=== PATIENT | male | born 1955 | race Caucasian/White ===

== ENCOUNTER → 2016-12-21 | Outpatient (CLI) | payer MEDICARE ==
--- NOTE | 2016-12-21 16:36 | REP ---
Duplex carotid sonography: History: Occlusion or stenosis of the carotid arteries. No comparison sonography. Findings: Antegrade flow is observed in both vertebral arteries. Right carotid: The right common carotid artery is unremarkable on two-dimensional scanning. There is mild mixed plaquing in the bulb, proximal ICA and proximal ECA on two-dimensional scanning on the right side. Color flow and spectral Doppler interrogation are unremarkable however. Velocity chart right carotid: CCA PSV 115 cm/s ICA PSV 68 cm/s ICA EDV 23 cm/s ECA PSV 130 cm/s Right ICA/CCA ratio normal 0.6. Impression: 0% to 15% category narrowing in the right ICA by Doppler velocity criteria. Left carotid: The left common carotid artery is unremarkable on two-dimensional scanning. There is mild mixed plaquing in the bulb and proximal ICA on two-dimensional scanning on the left side. Color flow and spectral Doppler interrogation are unremarkable on the left. Velocity chart left carotid: CCA PSV 106 cm/s ICA PSV 64 cm/s ICA EDV 26 cm/s ECA PSV 77 cm/s Left ICA/CCA ratio normal 0.6. Impression: 0% to 15% category narrowing in the left ICA by Doppler velocity criteria. Signed by Hu Stafford MD 12/21/2016 04:58 P
== END ==
LOC: M RAD 15:31
PROVIDERS: ATTEND Nurse Practitioner Family
DX: I65.23 Occlusion and stenosis of bilateral carotid arteries (principal); K21.9 Gastro-esophageal reflux disease without esophagitis; E03.9 Hypothyroidism, unspecified; E78.5 Hyperlipidemia, unspecified; I10 Essential (primary) hypertension; Z12.5 Encounter for screening for malignant neoplasm of prostate

== ENCOUNTER → 2016-12-21 | Outpatient (CLI) | payer MEDICARE ==
[2016-12-21 12:31] LABS: BASO % 0.7 % (0.0-1.0); EOS # 0.3 K/mm3 (0.0-0.50); EOS % 3.8 % (0.0-3.0); LARGE UNSTAINED CELL # 0.2 K/mm3 (0.0-0.4); LARGE UNSTAINED CELL % 2.2 % (0.0-4.0); LYMPH # 2.7 K/mm3 (1.5-4.5); LYMPH % 33.4 % (24.0-44.0); MEAN CORPUSCULAR HEMOGLOBIN 31.7 pg (27.0-33.0); MEAN CORPUSCULAR HGB CONC 34.1 g/dl (32.0-36.5); MEAN CORPUSCULAR VOLUME 93.1 fl (80.0-96.0); MONO # 0.6 K/mm3 (0.0-0.8); MONO % 7.5 % (0.0-5.0); NEUTROPHILS # 3.9 K/mm3 (1.8-7.7); NEUTROPHILS % 52.5 % (36.0-66.0); PLATELET COUNT, AUTOMATED 303 k/mm3 (150-450); WHITE BLOOD COUNT 7.5 K/mm3 (4.0-10.0)
[2016-12-21 12:37] LABS: ALBUMIN 3.9 GM/DL (3.2-5.2); ALBUMIN/GLOBULIN RATIO 1.26 (1.00-1.93); ALKALINE PHOSPHATASE 62 U/L (45-117); ALT/SGPT 60 U/L (12-78); ANION GAP 9 MEQ/L (8-16); AST/SGOT 24 U/L (15-37); BILIRUBIN,TOTAL 0.2 MG/DL (0.2-1.0); BLOOD UREA NITROGEN 18 MG/DL (7-18); CALCIUM LEVEL 9.1 MG/DL (8.5-10.1); CARBON DIOXIDE LEVEL 25 MEQ/L (21-32); CHLORIDE LEVEL 107 MEQ/L (98-107); CHOLESTEROL LEVEL 208 MG/DL (<200); CREATININE FOR GFR 0.81 MG/DL (0.70-1.30); FREE T4 1.08 NG/DL (0.76-1.46); GLOMERULAR FILTRATION RATE > 60.0 (>56); GLUCOSE, FASTING 139 MG/DL (70-105); POTASSIUM SERUM 5.1 MEQ/L (3.5-5.1); SODIUM LEVEL 141 MEQ/L (136-145); TRIGLYCERIDES LEVEL 409 MG/DL (<150)
[2016-12-22 14:13] LABS: PSA TOTAL 0.7 ng/mL (0.0-4.0)
== END ==
LOC: M WUC 08:31
PROVIDERS: ATTEND Nurse Practitioner Family
DX: K21.9 Gastro-esophageal reflux disease without esophagitis (principal); E03.9 Hypothyroidism, unspecified; E78.5 Hyperlipidemia, unspecified; I10 Essential (primary) hypertension; Z12.5 Encounter for screening for malignant neoplasm of prostate

== ENCOUNTER 2016-12-31 17:40 | Emergency (ER) | payer MEDICARE ==
--- NOTE | 2016-12-31 18:12 | REP ---
Clinical: Chest pain . Comparison: 05/30/2016 . Findings: The mediastinum and cardiac silhouette are stable and within normal limits for portable technique. The lung flanagan are clear without acute consolidation, effusion, or pneumothorax. Skeletal structures are intact. Impression: Normal portable chest x-ray Signed by Hudson Lee MD 12/31/2016 06:03 P
[2016-12-31] MEDS ORDERED: NITROGLYCERIN 0.4 MG SUBL TABLET As Ordered ONE (18:26)
[2016-12-31] MEDS ORDERED: ASPIRIN 81 MG CHEW TABLET As Ordered ONE (18:26)
[2016-12-31 18:31] LABS: BASO # 0.1 K/mm3 (0.0-0.2); BASO % 0.5 % (0.0-1.0); EOS # 0.4 K/mm3 (0.0-0.50); EOS % 3.8 % (0.0-3.0); LARGE UNSTAINED CELL # 0.2 K/mm3 (0.0-0.4); LYMPH # 3.7 K/mm3 (1.5-4.5); MEAN CORPUSCULAR HEMOGLOBIN 32.2 pg (27.0-33.0); MEAN CORPUSCULAR VOLUME 91.8 fl (80.0-96.0); MONO # 0.5 K/mm3 (0.0-0.8); MONO % 5.2 % (0.0-5.0); NEUTROPHILS # 5.6 K/mm3 (1.8-7.7); NEUTROPHILS % 54.4 % (36.0-66.0); PLATELET COUNT, AUTOMATED 319 k/mm3 (150-450); RED CELL DISTRIBUTION WIDTH 12.9 % (11.5-14.5); WHITE BLOOD COUNT 10.2 K/mm3 (4.0-10.0)
[2016-12-31 18:44] LABS: ANION GAP 10 MEQ/L (8-16); BLOOD UREA NITROGEN 17 MG/DL (7-18); CALCIUM LEVEL 9.1 MG/DL (8.5-10.1); CARBON DIOXIDE LEVEL 25 MEQ/L (21-32); CHLORIDE LEVEL 103 MEQ/L (98-107); CREATININE FOR GFR 0.91 MG/DL (0.70-1.30); GLOMERULAR FILTRATION RATE > 60.0 (>56); GLUCOSE, FASTING 173 MG/DL (70-105); POTASSIUM SERUM 3.9 MEQ/L (3.5-5.1); SODIUM LEVEL 138 MEQ/L (136-145)
--- NOTE | 2016-12-31 20:29 | ECGEPIP ---
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
--- NOTE | 2017-01-01 01:25 | EDDOCDS ---
Physician Documentation [facility] Name: Zafar Dooley Age: 61 yrs Sex: Male : 1955 Arrival Date: 12/31/2016 Time: 17:40 Bed 17 Private MD: Disposition: 01/01/17 01:18 Discharged to Home/Self Care. Impression: Chest pain, unspecified. - Condition is Stable. - Discharge Instructions: Nonspecific Chest Pain, Chest Wall Pain, Nonspecific Chest Pain, [id number]. - Medication Reconciliation, Local Pharmacy Hours form. - Follow up: Jonn Oneal PA; When: Call to arrange an appointment; Reason: Continuance of care. - Problem is an acute exacerbation. - Symptoms have improved. Historical: - Allergies: Bees; fire ants; - Home Meds: 1. zolpidem 5 mg Oral tab 1 tab nightly (Last dose: Unknown) 2. tizanidine 4 mg oral tab 1 tab every 8 hours as needed (Last dose: Unknown) 3. promethazine 25 mg Oral tab 1 tab every 6 hours (Last dose: Unknown) 4. omeprazole 40 mg Oral cpDR 1 cap once daily (Last dose: Unknown) 5. lisinopril 20 mg Oral tab 1 tab once daily (Last dose: Unknown) 6. amlodipine 10 mg Oral tab 1 tab once daily (Last dose: Unknown) 7. aspirin 81 mg Oral TbEC 1 tab once daily (Last dose: Unknown) 8. citalopram 40 mg Oral tab 1 tab once daily (Last dose: Unknown) 9. gabapentin 400 mg Oral cap 1 cap 3 times per day (Last dose: Unknown) 10. glimepiride 4 mg Oral tab 1 tab once daily (Last dose: Unknown) 11. levothyroxine 112 mcg Oral tab 1 tab once daily (Last dose: Unknown) 12. meclizine 25 mg Oral tab 1 tab 3 times per day as needed (Last dose: Unknown) 13. metformin 1,000 mg Oral tab 1 tab 2 times per day (Last dose: Unknown) 14. nitroglycerin 0.4 mg SL subl 1 tab every 5 minutes (Last dose: Unknown) 15. pravastatin 40 mg oral tab 1 tab once daily (Last dose: Unknown) - PMHx: TIA; neuropathy; Diabetes - NIDDM: controlled; COPD; Aneurysm, Cerebral; - PSHx: right shoulder; Appendectomy; - Social history: Smoking status: Patient uses tobacco products, heavy tobacco smoker. No barriers to communication noted, Speaks appropriately for age. - Family history: Not pertinent. - : The pt / caregiver states he / she is not on anticoagulants. Home medication list is obtained from the patient. - Exposure Risk Screening:: None identified. Vital Signs: 12/31 17:42 BP 185 / 91 RA Sitting (auto/reg); Pulse 78; Resp 18; Temp 96.8; Pulse Ox 95% on R/A; jrd Weight 89.36 kg / 197.01 lbs (R); Height 5 ft. 7 in. (170.18 cm); Pain 8/10; 17:49 BP 139 / 85 (auto/); rs3 17:49 Pulse 76 MON; Pulse Ox 96% ; rs3 18:03 BP 107 / 75 (auto/); kas2 18:03 Pulse 82 MON; Pulse Ox 95% ; kas2 18:18 BP 136 / 79 (auto/); kas2 18:18 Pulse 78 MON; Pulse Ox 94% ; kas2 18:33 BP 127 / 66 (auto/); kas2 18:33 Pulse 96 MON; Pulse Ox 91% ; kas2 18:48 BP 138 / 70 (auto/); kas2 18:48 Pulse 88 MON; Pulse Ox 93% ; kas2 19:03 BP 126 / 64 (auto/); kas2 19:03 Pulse 84 MON; Pulse Ox 95% ; kas2 19:18 BP 130 / 69 (auto/); kas2 19:18 Pulse 84 MON; Pulse Ox 95% ; kas2 19:33 BP 133 / 79 (auto/); kas2 19:33 Pulse 86 MON; Pulse Ox 96% ; kas2 19:48 BP 129 / 73 (auto/); kas2 19:48 Pulse 90 MON; Pulse Ox 94% ; kas2 20:03 BP 136 / 76 (auto/); kas2 20:03 Pulse 88 MON; Pulse Ox 94% ; kas2 20:18 BP 105 / 57 (auto/); kas2 20:18 Pulse 76 MON; Pulse Ox 93% ; kas2 20:33 BP 104 / 55 (auto/); kas2 20:33 Pulse 80 MON; Pulse Ox 93% ; kas2 20:48 BP 106 / 57 (auto/); kas2 20:48 Pulse 76 MON; Pulse Ox 94% ; kas2 21:03 BP 108 / 56 (auto/); kas2 21:03 Pulse 80 MON; Pulse Ox 92% ; kas2 21:07 Resp 18; Temp 97.9(O); Pain 0/10; kas2 21:18 BP 113 / 62 (auto/); kas2 21:18 Pulse 78 MON; Pulse Ox 92% ; kas2 21:33 BP 100 / 52 (auto/); kas2 21:33 Pulse 82 MON; Pulse Ox 92% ; kas2 21:48 BP 100 / 52 (auto/); kas2 21:48 Pulse 78 MON; Pulse Ox 93% ; kas2 22:03 BP 122 / 70 (auto/); nn1 22:03 Pulse 88 MON; Pulse Ox 93% ; nn1 22:18 BP 125 / 73 (auto/); nn1 22:18 Pulse 84 MON; Pulse Ox 92% ; nn1 22:33 BP 125 / 75 (auto/); nn1 22:33 Pulse 84 MON; Pulse Ox 92% ; nn1 22:48 BP 118 / 71 (auto/); nn1 22:48 Pulse 88 MON; Pulse Ox 93% ; nn1 23:18 BP 133 / 68 (auto/); nn1 23:18 Pulse 88 MON; Pulse Ox 94% ; nn1 23:33 BP 131 / 68 (auto/); nn1 23:33 Pulse 88 MON; Pulse Ox 94% ; nn1 01/01 01:20 Temp 97.6(O); nn1 01:22 BP 126 / 53; Pulse 82; Resp 18; Pulse Ox 95% on R/A; Pain 0/10; kas2 12/31 17:42 Body Mass Index 30.85 (89.36 kg, 170.18 cm) jrd MDM: 12/31 17:49 Cane Cutter/Pulse Ox/q 30 min VS ordered. ml6 17:49 If >35 years old with cardiac risk factors and/or suspicion of acute ischemia- place ml6 directly in room and do STAT EKG ordered. 17:49 If pre-RCE wait time >60 minutes, inform reg. staff to do full reg ordered. ml6 17:49 Oxygen at 2L/min via NC ordered. ml6 17:49 IV Saline Lock ordered. ml6 17:49 Undress patient appropriately for examination ordered. ml6 17:49 BMP Ordered. EDMS 17:49 CBC with Diff Ordered. EDMS 17:49 CIP Ordered. EDMS 17:49 D-Dimer Quant Ordered. EDMS 17:49 Troponin Ordered. EDMS 17:50 Chest, 1 View Ordered. EDMS 17:50 ECG WITH READING ER PHYS+CARDIAG ordered. EDMS 18:18 Aspirin 324 mg PO once ordered. br1 18:18 Nitrostat 0.4 mg Sublingual once ordered. br1 18:42 CBC with Diff Reviewed. br1 18:42 Chest, 1 View Reviewed. br1 18:57 Financial registration complete. gjb 19:04 [facility] Payment Agreement was scanned into [employer] and attached to record. gjb 19:41 BMP Reviewed. br1 19:41 CIP Reviewed. br1 19:41 D-Dimer Quant Reviewed. br1 19:41 Troponin Reviewed. br1 19:55 Admit to ED Observation status ordered. br1 19:55 Repeat EKG (put time details section) ordered. br1 19:55 Redraw CIP &Troponin (put time in details section) ordered. br1 19:57 Misc. Nursing Order ordered. br1 20:34 Redraw CIP &Troponin (put time in details section) complete. tmm1 20:35 Repeat EKG (put time details section) complete. tmm1 20:36 ECG WITH READING ER PHYS ordered. EDMS 20:36 CARDIAC MARKER PANEL Ordered. EDMS 20:38 Admit to ED Observation status complete. tmm1 01/01 01:15 CARDIAC MARKER PANEL Reviewed. mm11 01:15 EKG-ADULT Reviewed. mm11 Administered Medications: 12/31 18:31 Drug: Aspirin 324 mg [aspirin 81 mg chewable tablet (4 tabs)] Route: PO; rs3 18:31 Drug: Nitrostat 0.4 mg [Nitrostat 0.4 mg sublingual tablet (1 tabs)] Route: Sublingual; rs3 18:52 Follow up: Response: Pain is decreased rs3 Signatures: Dispatcher [employer] EDMS Ezra Ponce DO DO mm11 Loi Mckeon MD MD br1 Ezra Villa, SARAH RN ml6 McLear, Chani, ETCHER ENAMELING ETCHER ENAMELING tmm1 Lissa Bautista Kim, RN RN [facility]2 Eden Bell RN rs3 The chart was reviewed and I authenticate all verbal orders and agree with the evaluation and treatment provided.Attachments: 19:04 [facility] Payment Agreement ayanna [email or web address]
--- NOTE | 2017-01-01 01:26 | EDDOCDS ---
Nurse's Notes [facility] [place] [facility] Name: Zafar Dooley Age: 61 yrs Sex: Male : 1955 Arrival Date: 12/31/2016 Time: 17:40 Bed 17 Private MD: Diagnosis: Chest pain, unspecified Presentation: 12/31 17:42 Presenting complaint: Patient states: states substernal chest pain radiating to his ml6 back since 0730 this am, patient states pain and pressure 8/10. Aspirin was not taken prior to arrival. Adult Sepsis Screening: The patient does not have new or worsening altered mentation. Patient's respiratory rate is less than 22. Systolic blood pressure is greater than 100. Patient has a qSOFA score of 0- Negative Sepsis Screen. Suicide/Homicide risk assessment- the patient denies having any suicidal and/or homicidal ideations and does not present with any other emotional, behavioral or mental health complaints. Status: Patient is not a substance abuse services director or dependent. Transition of care: patient was not received from another setting of care. 17:42 Acuity: KORTNEY Level 2 ml6 17:42 Method Of Arrival: Walkin/Carried/Asstd ml6 Triage Assessment: 18:04 General: Appears in no apparent distress, Behavior is appropriate for age, cooperative. ml6 Pain: Location: chest Pain currently is 8 out of 10 on a pain scale. Pain does not radiate. Quality of pain is described as sharp, Pain began 1 day ago Is continuous Alleviated by nothing. Aggravated by. HIV screening NA for this visit. Cardiovascular: Capillary refill < 3 seconds is brisk in bilateral fingers toes Heart tones S1 S2 present Edema is absent. Pulses are all present. Rhythm is regular Chest pain is described as "worst pain of my life", quality is pressure, stabbing, radiates to left arm(s) back episodes are continuous began 0730. Respiratory: No deficits noted. GI: No deficits noted. Abdomen is flat, non- distended Bowel sounds present X 4 quads. Historical: - Allergies: Bees; fire ants; - Home Meds: 1. zolpidem 5 mg Oral tab 1 tab nightly (Last dose: Unknown) 2. tizanidine 4 mg oral tab 1 tab every 8 hours as needed (Last dose: Unknown) 3. promethazine 25 mg Oral tab 1 tab every 6 hours (Last dose: Unknown) 4. omeprazole 40 mg Oral cpDR 1 cap once daily (Last dose: Unknown) 5. lisinopril 20 mg Oral tab 1 tab once daily (Last dose: Unknown) 6. amlodipine 10 mg Oral tab 1 tab once daily (Last dose: Unknown) 7. aspirin 81 mg Oral TbEC 1 tab once daily (Last dose: Unknown) 8. citalopram 40 mg Oral tab 1 tab once daily (Last dose: Unknown) 9. gabapentin 400 mg Oral cap 1 cap 3 times per day (Last dose: Unknown) 10. glimepiride 4 mg Oral tab 1 tab once daily (Last dose: Unknown) 11. levothyroxine 112 mcg Oral tab 1 tab once daily (Last dose: Unknown) 12. meclizine 25 mg Oral tab 1 tab 3 times per day as needed (Last dose: Unknown) 13. metformin 1,000 mg Oral tab 1 tab 2 times per day (Last dose: Unknown) 14. nitroglycerin 0.4 mg SL subl 1 tab every 5 minutes (Last dose: Unknown) 15. pravastatin 40 mg oral tab 1 tab once daily (Last dose: Unknown) - PMHx: TIA; neuropathy; Diabetes - NIDDM: controlled; COPD; Aneurysm, Cerebral; - PSHx: right shoulder; Appendectomy; - Social history: Smoking status: Patient uses tobacco products, heavy tobacco smoker. No barriers to communication noted, Speaks appropriately for age. - Family history: Not pertinent. - : The pt / caregiver states he / she is not on anticoagulants. Home medication list is obtained from the patient. - Exposure Risk Screening:: None identified. Screenin:34 Screening information is obtained from the patient. Fall risk: No risks identified. rs3 Assistance ADL's: requires no assistance with activities of daily living. Abuse/DV Screen: The patient / caregiver reports he/she is: not in a situation that causes fear, pain or injury. Nutritional screening: No deficits noted. home support is adequate. 01/01 01:24 Advance Directives: Currently, there is no health care proxy. There is no active DNR kas2 order. There is no living will. There is no Power of [employer] Administrator. Assessment: 12/31 18:32 General: Appears in no apparent distress, Behavior is appropriate for age, cooperative. rs3 Pain: Location: chest. Cardiovascular: Capillary refill < 3 seconds Clubbing of nail beds is absent Heart tones S1 S2 present Chest pain is described as Pain is 7 out of 10 on a pain scale. quality is squeezing, is located in anterior chest wall radiates to left arm(s) back episodes are intermittent this morning. Cardiovascular: Rhythm is regular Chest pain. Respiratory: Airway is patent Respiratory effort is even, unlabored, Breath sounds are clear bilaterally. Derm: Skin is pink, warm & dry. 20:07 General: Appears in no apparent distress, comfortable, Behavior is appropriate for age, nn1 cooperative. General: Dr. Mckeon approved of patient taking own home medications. Patient aware. Patient aware of plan of care at this time. . Pain: Denies pain. Cardiovascular: Capillary refill < 3 seconds. Respiratory: Airway is patent Respiratory effort is even, unlabored, Respiratory pattern is regular. Derm: Skin is pink, warm & dry. 20:52 Reassessment: Patient appears in no apparent distress at this time. Patient denies pain nn1 at this time. General: Appears in no apparent distress, comfortable, Behavior is appropriate for age, cooperative. 21:05 General: Verbal report given by Laurence Morelos RN. Assumed care of patient at this time.. kas2 22:03 General: Appears in no apparent distress, comfortable, Behavior is appropriate for age, kas2 cooperative. Pain: Denies pain. Neurological: Level of Consciousness is awake, alert, Oriented to person, place, time. Cardiovascular: Capillary refill < 3 seconds Heart tones S1 S2 present Rhythm is regular Chest pain is denied. Respiratory: Airway is patent Respiratory effort is even, unlabored, Respiratory pattern is regular, symmetrical, Breath sounds are clear bilaterally. Derm: Skin is intact, Skin is dry, Skin is pink, warm & dry. Skin temperature is warm. 22:50 General: Appears in no apparent distress, comfortable, Behavior is appropriate for age, nn1 cooperative. Pain: Denies pain. Neurological: Level of Consciousness is awake, alert, Oriented to person, place, time. Cardiovascular: Rhythm is sinus rhythm No ectopy. Respiratory: Airway is patent Respiratory effort is even, unlabored, Respiratory pattern is regular, symmetrical. Derm: Skin is intact, Skin is dry, Skin is pink, warm & dry. Skin temperature is warm. 01/01 00:01 General: Appears in no apparent distress, comfortable, Behavior is appropriate for age, nn1 cooperative. Pain: Denies pain. Neurological: Level of Consciousness is awake, alert, Oriented to person, place, time. Cardiovascular: Rhythm is sinus rhythm No ectopy. Respiratory: Airway is patent Respiratory effort is even, unlabored, Respiratory pattern is regular, symmetrical. Derm: Skin is intact, Skin is dry, Skin is pink, warm & dry. Skin temperature is warm. 01:22 General: Appears in no apparent distress, comfortable, Behavior is appropriate for age, kas2 cooperative. Pain: Denies pain. Neurological: Level of Consciousness is awake, alert, Oriented to person, place, time. Cardiovascular: Rhythm is sinus rhythm No ectopy. Respiratory: Airway is patent Respiratory effort is even, unlabored, Respiratory pattern is regular, symmetrical. Derm: Skin is intact, Skin is dry, Skin is pink, warm & dry. Skin temperature is warm. Vital Signs: 12/31 17:42 BP 185 / 91 RA Sitting (auto/reg); Pulse 78; Resp 18; Temp 96.8; Pulse Ox 95% on R/A; jrd Weight 89.36 kg (R); Height 5 ft. 7 in. (170.18 cm); Pain 8/10; 17:49 BP 139 / 85 (auto/); rs3 17:49 Pulse 76 MON; Pulse Ox 96% ; rs3 18:03 BP 107 / 75 (auto/); kas2 18:03 Pulse 82 MON; Pulse Ox 95% ; kas2 18:18 BP 136 / 79 (auto/); kas2 18:18 Pulse 78 MON; Pulse Ox 94% ; kas2 18:33 BP 127 / 66 (auto/); kas2 18:33 Pulse 96 MON; Pulse Ox 91% ; kas2 18:48 BP 138 / 70 (auto/); kas2 18:48 Pulse 88 MON; Pulse Ox 93% ; kas2 19:03 BP 126 / 64 (auto/); kas2 19:03 Pulse 84 MON; Pulse Ox 95% ; kas2 19:18 BP 130 / 69 (auto/); kas2 19:18 Pulse 84 MON; Pulse Ox 95% ; kas2 19:33 BP 133 / 79 (auto/); kas2 19:33 Pulse 86 MON; Pulse Ox 96% ; kas2 19:48 BP 129 / 73 (auto/); kas2 19:48 Pulse 90 MON; Pulse Ox 94% ; kas2 20:03 BP 136 / 76 (auto/); kas2 20:03 Pulse 88 MON; Pulse Ox 94% ; kas2 20:18 BP 105 / 57 (auto/); kas2 20:18 Pulse 76 MON; Pulse Ox 93% ; kas2 20:33 BP 104 / 55 (auto/); kas2 20:33 Pulse 80 MON; Pulse Ox 93% ; kas2 20:48 BP 106 / 57 (auto/); kas2 20:48 Pulse 76 MON; Pulse Ox 94% ; kas2 21:03 BP 108 / 56 (auto/); kas2 21:03 Pulse 80 MON; Pulse Ox 92% ; kas2 21:07 Resp 18; Temp 97.9(O); Pain 0/10; kas2 21:18 BP 113 / 62 (auto/); kas2 21:18 Pulse 78 MON; Pulse Ox 92% ; kas2 21:33 BP 100 / 52 (auto/); kas2 21:33 Pulse 82 MON; Pulse Ox 92% ; kas2 21:48 BP 100 / 52 (auto/); kas2 21:48 Pulse 78 MON; Pulse Ox 93% ; kas2 22:03 BP 122 / 70 (auto/); nn1 22:03 Pulse 88 MON; Pulse Ox 93% ; nn1 22:18 BP 125 / 73 (auto/); nn1 22:18 Pulse 84 MON; Pulse Ox 92% ; nn1 22:33 BP 125 / 75 (auto/); nn1 22:33 Pulse 84 MON; Pulse Ox 92% ; nn1 22:48 BP 118 / 71 (auto/); nn1 22:48 Pulse 88 MON; Pulse Ox 93% ; nn1 23:18 BP 133 / 68 (auto/); nn1 23:18 Pulse 88 MON; Pulse Ox 94% ; nn1 23:33 BP 131 / 68 (auto/); nn1 23:33 Pulse 88 MON; Pulse Ox 94% ; nn1 01/01 01:20 Temp 97.6(O); nn1 01:22 BP 126 / 53; Pulse 82; Resp 18; Pulse Ox 95% on R/A; Pain 0/10; kas2 12/31 17:42 Body Mass Index 30.85 (89.36 kg, 170.18 cm) jrd Vitals: 12/31 17:42 Log In Time: December 31, 2016 at 17:34. RN notified that patient meets Red Flag jrd criteria. ED Course: 17:42 Patient visited by Carl Sorensen PCA. jrd 17:42 Patient moved to Waiting jrd 17:43 Patient visited by Carl Sorensen PCA. jrd 17:49 Patient moved to 17 ml6 18:02 Triage Initiated ml6 18:03 Loi Mckeon MD is Attending Physician. br1 18:05 EKG done. (by ED staff). Reviewed by Stacey Eisenberg MD. jlf 18:12 Patient visited by Dong Rivera PCA. jlf 18:12 Pt greeted and oriented to ED. Patient advised of names of staff involved in care, jlf location of call walters, wait times and NPO status. Accompanied by Family Member, Patient has correct armband on for positive identification. Bed in low position. collections director on. Pulse ox on. NIBP on. 18:13 Patient visited by Dong Rivera PCA. jlf 18:17 Patient visited by Loi Mckeon MD. br1 18:34 Inserted saline lock: 20 gauge in right antecubital area and blood collected. The rs3 patient tolerated the procedure well. Labs drawn. (by ED staff). 18:34 Chest, 1 View Returned. EDMS 18:52 Patient visited by Eden Bell RN. rs3 19:04 [facility] Payment Agreement was scanned into [employer] and attached to record. gjb 19:45 Patient visited by Loi Mckeon MD. br1 20:21 Patient visited by González Medrano RN. nn1 20:52 Patient visited by González Medrano RN. nn1 21:07 Patient visited by Janny Knight RN. kas2 21:08 EKG-ADULT Returned. EDMS 22:04 Patient visited by Janny Knight RN. kas2 22:14 Janny Knight RN is Primary Nurse. kas2 22:38 Patient visited by Janny Knight RN. kas2 22:51 Patient visited by González Medrano RN. nn1 23:32 Patient visited by Janny Knight RN. kas2 23:54 CARDIAC MARKER PANEL Sent. nn1 23:58 Patient visited by González Medrano RN. nn1 01/01 00:02 Patient visited by Arjun Mayberry PCA. jmv 00:02 EKG done. (by ED staff). Reviewed by Loi Mckeon MD. jmv 00:03 Patient visited by González Medrano RN. nn1 00:22 Attending Physician role handed off by Loi Mckeon MD mm11 00:22 Ezra Ponce DO is Attending Physician. mm11 00:38 Patient visited by González Medrano RN. nn1 01:08 Patient visited by González Medrano RN. nn1 01:18 Jonn Oneal PA is Referral Physician. mm11 01:23 Discontinued IV bleeding controlled, pressure dressing applied, No redness/swelling at kas2 site. No procedures done that require assistance. 01:24 The patient / caregiver is instructed regarding the plan of care and ED course. [facility] Administered Medications: 12/31 18:31 Drug: Aspirin 324 mg [aspirin 81 mg chewable tablet (4 tabs)] Route: PO; rs3 18:31 Drug: Nitrostat 0.4 mg [Nitrostat 0.4 mg sublingual tablet (1 tabs)] Route: Sublingual; rs3 18:52 Follow up: Response: Pain is decreased rs3 Order Results: Lab Order: BMP; SPEC'M 12/31/16 18:11 Test: GLUCOSE, FASTING; Value: 173; Range: 70-105; Abnormal: Above high normal; Units: MG/DL; Status: F Test: BLOOD UREA NITROGEN; Value: 17; Range: 7-18; Units: MG/DL; Status: F Test: CREATININE FOR GFR; Value: 0.91; Range: 0.70-1.30; Units: MG/DL; Status: F Test: GLOMERULAR FILTRATION RATE; Value: > 60.0; Range: >56; Status: F Test: SODIUM LEVEL; Value: 138; Range: 136-145; Units: MEQ/L; Status: F Test: POTASSIUM SERUM; Value: 3.9; Range: 3.5-5.1; Units: MEQ/L; Status: F Test: CHLORIDE LEVEL; Value: 103; Range: 98-107; Units: MEQ/L; Status: F Test: CARBON DIOXIDE LEVEL; Value: 25; Range: 21-32; Units: MEQ/L; Status: F Test: ANION GAP; Value: 10; Range: 8-16; Units: MEQ/L; Status: F Test: CALCIUM LEVEL; Value: 9.1; Range: 8.5-10.1; Units: MG/DL; Status: F Test Note: ; Units are mL/min/1.73 m2 Chronic Kidney Disease Staging per NKF: Stage I & II GFR >=60 Normal to Mildly Decreased Stage III GFR 30-59 Moderately Decreased Stage IV GFR 15-29 Severely Decreased Stage V GFR <15 Very Little GFR Left ESRD GFR <15 on CONDEMNATION ENGINEER Lab Order: CBC with Diff; SPEC'M 12/31/16 18:11 Test: WHITE BLOOD COUNT; Value: 10.2; Range: 4.0-10.0; Abnormal: Above high normal; Units: K/mm3; Status: F Test: RED BLOOD COUNT; Value: 4.74; Range: 4.30-6.10; Units: M/mm3; Status: F Test: HEMOGLOBIN; Value: 15.2; Range: 14.0-18.0; Units: g/dl; Status: F Test: HEMATOCRIT; Value: 43.5; Range: 42.0-52.0; Units: %; Status: F Test: MEAN CORPUSCULAR VOLUME; Value: 91.8; Range: 80.0-96.0; Units: fl; Status: F Test: MEAN CORPUSCULAR HEMOGLOBIN; Value: 32.2; Range: 27.0-33.0; Units: pg; Status: F Test: MEAN CORPUSCULAR HGB CONC; Value: 35.0; Range: 32.0-36.5; Units: g/dl; Status: F Test: RED CELL DISTRIBUTION WIDTH; Value: 12.9; Range: 11.5-14.5; Units: %; Status: F Test: PLATELET COUNT, AUTOMATED; Value: 319; Range: 150-450; Units: k/mm3; Status: F Test: NEUTROPHILS %; Value: 54.4; Range: 36.0-66.0; Units: %; Status: F Test: LYMPH %; Value: 34.0; Range: 24.0-44.0; Units: %; Status: F Test: MONO %; Value: 5.2; Range: 0.0-5.0; Abnormal: Above high normal; Units: %; Status: F Test: EOS %; Value: 3.8; Range: 0.0-3.0; Abnormal: Above high normal; Units: %; Status: F Test: BASO %; Value: 0.5; Range: 0.0-1.0; Units: %; Status: F Test: LARGE UNSTAINED CELL %; Value: 2.0; Range: 0.0-4.0; Units: %; Status: F Test: NEUTROPHILS #; Value: 5.6; Range: 1.8-7.7; Units: K/mm3; Status: F Test: LYMPH #; Value: 3.7; Range: 1.5-4.5; Units: K/mm3; Status: F Test: MONO #; Value: 0.5; Range: 0.0-0.8; Units: K/mm3; Status: F Test: EOS #; Value: 0.4; Range: 0.0-0.50; Units: K/mm3; Status: F Test: BASO #; Value: 0.1; Range: 0.0-0.2; Units: K/mm3; Status: F Test: LARGE UNSTAINED CELL #; Value: 0.2; Range: 0.0-0.4; Units: K/mm3; Status: F Lab Order: CIP; SPEC'M 12/31/16 18:11 Test: CPK CREATINE PHOSPHOKINASE; Value: 105; Range: 39-308; Units: U/L; Status: F Test: CK-MB VALUE MASS; Value: 1.0; Range: 0.0-3.6; Units: NG/ML; Status: F Test: MB/CK RELATIVE INDEX; Value: 0.95; Range: < OR =4; Status: F Test Note: ; DIAGNOSIS CRITERIA MMB ng/ml Relative Index (RI) NON-AMI < or = 5 N/A DAWSON ZONE > 5 < or = 4 AMI > 5 > 4 Lab Order: D-Dimer Quant; SPEC'M 12/31/16 18:11 Test: D-DIMER QUANT; Value: 352.1; Range: <500; Units: ng/ml; Status: F Lab Order: Troponin; SPEC'M 12/31/16 18:11 Test: TROPONIN I; Value: < 0.02; Range: < 0.10; Units: NG/ML; Status: F Test Note: ; Troponin I Reference Interval for Siemens [place] LOCI: 99th Percentile= 0.00-0.045 ng/ml Risk Stratification: <= 0.10 ng/ml Decreased Risk for Adverse Clinical Events. 0.10-1.50 ng/ml Increased Risk for Adverse Clinical Events. Evaluation of additional criterion and/or repeat testing in 2-6 hours is suggested to rule out myocardial damage. >= 1.50 ng/ml Indicative of Myocardial Injury. Lab Order: CARDIAC MARKER PANEL; SPEC'M 12/31/16 23:55 Test: CPK CREATINE PHOSPHOKINASE; Value: 90; Range: 39-308; Units: U/L; Status: F Test: CK-MB VALUE MASS; Value: 1.0; Range: 0.0-3.6; Units: NG/ML; Status: F Test: MB/CK RELATIVE INDEX; Value: 1.11; Range: < OR =4; Status: F Test: TROPONIN I; Value: < 0.02; Range: < 0.10; Units: NG/ML; Status: F Test Note: ; DIAGNOSIS CRITERIA MMB ng/ml Relative Index (RI) NON-AMI < or = 5 N/A DAWSON ZONE > 5 < or = 4 AMI > 5 > 4 Radiology Order: Chest, 1 View Test: Chest, 1 View REASON FOR EXAMINATION: Chest Pain; Clinical: Chest pain .; ; Comparison: 05/30/2016 .; ; Findings:; The mediastinum and cardiac silhouette are stable and within normal limits for; portable technique. The lung flanagan are clear without acute consolidation,; effusion, or pneumothorax. Skeletal structures are intact.; ; Impression:; Normal portable chest x-ray; ; ; Signed by; Hudson Lee MD 12/31/2016 06:03 P; Radiology Order: EKG-ADULT Test: EKG-ADULT REASON FOR EXAMINATION: Chest Pain; Stationary ECG Study; [facility] - ED; ; Test Date: 2016-12-31; Pat Name: ZAFAR DOOLEY Department:; Room: -; Gender: M Interviewing Clerk: jadiel; : 1955 Requested By: Stacey Eisenberg; Order Number: [id number] Reading MD: Stacey Eisenberg; Measurements; Intervals [place]; Rate: 77 P: 48; SC: 129 QRS: 7; QRSD: 98 T: 64; QT: 386; QTc: 439; Interpretive Statements; SINUS RHYTHM; NSTTW ABNORMALITY; PRWP; DECREASED RATE 05/3005/30/16; Electronically Signed On 12-31-2016 20:29:26 EST by Stacey Eisenberg; Outcome: 01/01 01:18 Discharge ordered by Provider. mm11 01:23 Discharge Assessment: patient administered narcotics - no. The following High Risk [facility] Discharge criteria are identified: None. Discharged to home ambulatory, with family. Condition: good Condition: stable Condition: improved. CT Study completed. Property :Personal belongings accompany Pt. 01:25 Patient left the ED. kas2 Signatures: Dispatcher [employer] EDEzra Becerra, DO DO mm11 Loi Mckeon MD MD br1 Eden Bell,RN RN rs3 Ezra Villa, RN RN ml6 Dong Rivera, WOOD HACKER WOOD HACKER Carl Stauffer, WOOD HACKER WOOD HACKER González Corbett,RN RN nn1 Lissa Bautista Kim,RN RN kas2 Arjun Mayberry, WOOD HACKER WOOD HACKER jmv MTDD
--- NOTE | 2017-01-02 08:24 | ECGEPIP ---
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
--- NOTE | 2017-01-03 02:25 | EDDOCDS ---
Physician Documentation [facility] Name: Zafar Dooley Age: 61 yrs Sex: Male : 1955 Arrival Date: 12/31/2016 Time: 17:40 Bed 17 Private MD: Disposition: 01/01/17 01:18 Discharged to Home/Self Care. Impression: Chest pain, unspecified. - Condition is Stable. - Discharge Instructions: Nonspecific Chest Pain, Chest Wall Pain, Nonspecific Chest Pain, [id number]. - Medication Reconciliation, Local Pharmacy Hours form. - Follow up: Jonn Oneal PA; When: Call to arrange an appointment; Reason: Continuance of care. - Problem is an acute exacerbation. - Symptoms have improved. Historical: - Allergies: Bees; fire ants; - Home Meds: 1. zolpidem 5 mg Oral tab 1 tab nightly (Last dose: Unknown) 2. tizanidine 4 mg oral tab 1 tab every 8 hours as needed (Last dose: Unknown) 3. promethazine 25 mg Oral tab 1 tab every 6 hours (Last dose: Unknown) 4. omeprazole 40 mg Oral cpDR 1 cap once daily (Last dose: Unknown) 5. lisinopril 20 mg Oral tab 1 tab once daily (Last dose: Unknown) 6. amlodipine 10 mg Oral tab 1 tab once daily (Last dose: Unknown) 7. aspirin 81 mg Oral TbEC 1 tab once daily (Last dose: Unknown) 8. citalopram 40 mg Oral tab 1 tab once daily (Last dose: Unknown) 9. gabapentin 400 mg Oral cap 1 cap 3 times per day (Last dose: Unknown) 10. glimepiride 4 mg Oral tab 1 tab once daily (Last dose: Unknown) 11. levothyroxine 112 mcg Oral tab 1 tab once daily (Last dose: Unknown) 12. meclizine 25 mg Oral tab 1 tab 3 times per day as needed (Last dose: Unknown) 13. metformin 1,000 mg Oral tab 1 tab 2 times per day (Last dose: Unknown) 14. nitroglycerin 0.4 mg SL subl 1 tab every 5 minutes (Last dose: Unknown) 15. pravastatin 40 mg oral tab 1 tab once daily (Last dose: Unknown) - PMHx: TIA; neuropathy; Diabetes - NIDDM: controlled; COPD; Aneurysm, Cerebral; - PSHx: right shoulder; Appendectomy; - Social history: Smoking status: Patient uses tobacco products, heavy tobacco smoker. No barriers to communication noted, Speaks appropriately for age. - Family history: Not pertinent. - : The pt / caregiver states he / she is not on anticoagulants. Home medication list is obtained from the patient. - Exposure Risk Screening:: None identified. Vital Signs: 12/31 17:42 BP 185 / 91 RA Sitting (auto/reg); Pulse 78; Resp 18; Temp 96.8; Pulse Ox 95% on R/A; jrd Weight 89.36 kg / 197.01 lbs (R); Height 5 ft. 7 in. (170.18 cm); Pain 8/10; 17:49 BP 139 / 85 (auto/); rs3 17:49 Pulse 76 MON; Pulse Ox 96% ; rs3 18:03 BP 107 / 75 (auto/); kas2 18:03 Pulse 82 MON; Pulse Ox 95% ; kas2 18:18 BP 136 / 79 (auto/); kas2 18:18 Pulse 78 MON; Pulse Ox 94% ; kas2 18:33 BP 127 / 66 (auto/); kas2 18:33 Pulse 96 MON; Pulse Ox 91% ; kas2 18:48 BP 138 / 70 (auto/); kas2 18:48 Pulse 88 MON; Pulse Ox 93% ; kas2 19:03 BP 126 / 64 (auto/); kas2 19:03 Pulse 84 MON; Pulse Ox 95% ; kas2 19:18 BP 130 / 69 (auto/); kas2 19:18 Pulse 84 MON; Pulse Ox 95% ; kas2 19:33 BP 133 / 79 (auto/); kas2 19:33 Pulse 86 MON; Pulse Ox 96% ; kas2 19:48 BP 129 / 73 (auto/); kas2 19:48 Pulse 90 MON; Pulse Ox 94% ; kas2 20:03 BP 136 / 76 (auto/); kas2 20:03 Pulse 88 MON; Pulse Ox 94% ; kas2 20:18 BP 105 / 57 (auto/); kas2 20:18 Pulse 76 MON; Pulse Ox 93% ; kas2 20:33 BP 104 / 55 (auto/); kas2 20:33 Pulse 80 MON; Pulse Ox 93% ; kas2 20:48 BP 106 / 57 (auto/); kas2 20:48 Pulse 76 MON; Pulse Ox 94% ; kas2 21:03 BP 108 / 56 (auto/); kas2 21:03 Pulse 80 MON; Pulse Ox 92% ; kas2 21:07 Resp 18; Temp 97.9(O); Pain 0/10; kas2 21:18 BP 113 / 62 (auto/); kas2 21:18 Pulse 78 MON; Pulse Ox 92% ; kas2 21:33 BP 100 / 52 (auto/); kas2 21:33 Pulse 82 MON; Pulse Ox 92% ; kas2 21:48 BP 100 / 52 (auto/); kas2 21:48 Pulse 78 MON; Pulse Ox 93% ; kas2 22:03 BP 122 / 70 (auto/); nn1 22:03 Pulse 88 MON; Pulse Ox 93% ; nn1 22:18 BP 125 / 73 (auto/); nn1 22:18 Pulse 84 MON; Pulse Ox 92% ; nn1 22:33 BP 125 / 75 (auto/); nn1 22:33 Pulse 84 MON; Pulse Ox 92% ; nn1 22:48 BP 118 / 71 (auto/); nn1 22:48 Pulse 88 MON; Pulse Ox 93% ; nn1 23:18 BP 133 / 68 (auto/); nn1 23:18 Pulse 88 MON; Pulse Ox 94% ; nn1 23:33 BP 131 / 68 (auto/); nn1 23:33 Pulse 88 MON; Pulse Ox 94% ; nn1 01/01 01:20 Temp 97.6(O); nn1 01:22 BP 126 / 53; Pulse 82; Resp 18; Pulse Ox 95% on R/A; Pain 0/10; kas2 12/31 17:42 Body Mass Index 30.85 (89.36 kg, 170.18 cm) jrd MDM: 12/31 17:49 Magnetic Resonance Imaging Coordinator/Pulse Ox/q 30 min VS ordered. ml6 17:49 If >35 years old with cardiac risk factors and/or suspicion of acute ischemia- place ml6 directly in room and do STAT EKG ordered. 17:49 If pre-RCE wait time >60 minutes, inform reg. staff to do full reg ordered. ml6 17:49 Oxygen at 2L/min via NC ordered. ml6 17:49 IV Saline Lock ordered. ml6 17:49 Undress patient appropriately for examination ordered. ml6 17:49 BMP Ordered. EDMS 17:49 CBC with Diff Ordered. EDMS 17:49 CIP Ordered. EDMS 17:49 D-Dimer Quant Ordered. EDMS 17:49 Troponin Ordered. EDMS 17:50 Chest, 1 View Ordered. EDMS 17:50 ECG WITH READING ER PHYS+CARDIAG ordered. EDMS 18:18 Aspirin 324 mg PO once ordered. br1 18:18 Nitrostat 0.4 mg Sublingual once ordered. br1 18:42 CBC with Diff Reviewed. br1 18:42 Chest, 1 View Reviewed. br1 18:57 Financial registration complete. gjb 19:04 IN-[facility] [place] Payment Agreement was scanned into [employer] and attached to record. gjb 19:41 BMP Reviewed. br1 19:41 CIP Reviewed. br1 19:41 D-Dimer Quant Reviewed. br1 19:41 Troponin Reviewed. br1 19:55 Admit to ED Observation status ordered. br1 19:55 Repeat EKG (put time details section) ordered. br1 19:55 Redraw CIP &Troponin (put time in details section) ordered. br1 19:57 Misc. Nursing Order ordered. br1 20:34 Redraw CIP &Troponin (put time in details section) complete. tmm1 20:35 Repeat EKG (put time details section) complete. tmm1 20:36 ECG WITH READING ER PHYS ordered. EDMS 20:36 CARDIAC MARKER PANEL Ordered. EDMS 20:38 Admit to ED Observation status complete. tmm1 01/01 01:15 CARDIAC MARKER PANEL Reviewed. mm11 01:15 EKG-ADULT Reviewed. mm11 11:22 T-Sheet-- Draft Copy was scanned into [employer] and attached to record. gb 11:22 ECG/EKG was scanned into [employer] and attached to record. gb Administered Medications: 12/31 18:31 Drug: Aspirin 324 mg [aspirin 81 mg chewable tablet (4 tabs)] Route: PO; rs3 18:31 Drug: Nitrostat 0.4 mg [Nitrostat 0.4 mg sublingual tablet (1 tabs)] Route: Sublingual; rs3 18:52 Follow up: Response: Pain is decreased rs3 Signatures: Dispatcher [employer] EDMS Caitlyn Argueta, Reg Reg Ezra Thomas DO DO mm11 Loi Mckeon MD MD br1 Ezra Villa, RN RN ml6 McLear, Chani, CORPORATE SECURITY OFFICER CORPORATE SECURITY OFFICER tmm1 Lissa Bautistab Janny Knight RN RN kas2 Eden Bell RN rs3 The chart was reviewed and I authenticate all verbal orders and agree with the evaluation and treatment provided.Attachments: 19:04 IN-[facility] Payment Agreement gjb 01/01 11:22 T-Sheet-- Draft Copy gb 11:22 ECG/EKG gb Chart Complete MTDD
--- NOTE | 2017-01-03 02:25 | EDDOCDS ---
Physician Documentation [facility] Name: Zafar Dooley Age: 61 yrs Sex: Male : 1955 Arrival Date: 12/31/2016 Time: 17:40 Bed 17 Private MD: Disposition: 01/01/17 01:18 Discharged to Home/Self Care. Impression: Chest pain, unspecified. - Condition is Stable. - Discharge Instructions: Nonspecific Chest Pain, Chest Wall Pain, Nonspecific Chest Pain, [id number]. - Medication Reconciliation, Local Pharmacy Hours form. - Follow up: Jonn Oneal PA; When: Call to arrange an appointment; Reason: Continuance of care. - Problem is an acute exacerbation. - Symptoms have improved. Historical: - Allergies: Bees; fire ants; - Home Meds: 1. zolpidem 5 mg Oral tab 1 tab nightly (Last dose: Unknown) 2. tizanidine 4 mg oral tab 1 tab every 8 hours as needed (Last dose: Unknown) 3. promethazine 25 mg Oral tab 1 tab every 6 hours (Last dose: Unknown) 4. omeprazole 40 mg Oral cpDR 1 cap once daily (Last dose: Unknown) 5. lisinopril 20 mg Oral tab 1 tab once daily (Last dose: Unknown) 6. amlodipine 10 mg Oral tab 1 tab once daily (Last dose: Unknown) 7. aspirin 81 mg Oral TbEC 1 tab once daily (Last dose: Unknown) 8. citalopram 40 mg Oral tab 1 tab once daily (Last dose: Unknown) 9. gabapentin 400 mg Oral cap 1 cap 3 times per day (Last dose: Unknown) 10. glimepiride 4 mg Oral tab 1 tab once daily (Last dose: Unknown) 11. levothyroxine 112 mcg Oral tab 1 tab once daily (Last dose: Unknown) 12. meclizine 25 mg Oral tab 1 tab 3 times per day as needed (Last dose: Unknown) 13. metformin 1,000 mg Oral tab 1 tab 2 times per day (Last dose: Unknown) 14. nitroglycerin 0.4 mg SL subl 1 tab every 5 minutes (Last dose: Unknown) 15. pravastatin 40 mg oral tab 1 tab once daily (Last dose: Unknown) - PMHx: TIA; neuropathy; Diabetes - NIDDM: controlled; COPD; Aneurysm, Cerebral; - PSHx: right shoulder; Appendectomy; - Social history: Smoking status: Patient uses tobacco products, heavy tobacco smoker. No barriers to communication noted, Speaks appropriately for age. - Family history: Not pertinent. - : The pt / caregiver states he / she is not on anticoagulants. Home medication list is obtained from the patient. - Exposure Risk Screening:: None identified. Vital Signs: 12/31 17:42 BP 185 / 91 RA Sitting (auto/reg); Pulse 78; Resp 18; Temp 96.8; Pulse Ox 95% on R/A; jrd Weight 89.36 kg / 197.01 lbs (R); Height 5 ft. 7 in. (170.18 cm); Pain 8/10; 17:49 BP 139 / 85 (auto/); rs3 17:49 Pulse 76 MON; Pulse Ox 96% ; rs3 18:03 BP 107 / 75 (auto/); kas2 18:03 Pulse 82 MON; Pulse Ox 95% ; kas2 18:18 BP 136 / 79 (auto/); kas2 18:18 Pulse 78 MON; Pulse Ox 94% ; kas2 18:33 BP 127 / 66 (auto/); kas2 18:33 Pulse 96 MON; Pulse Ox 91% ; kas2 18:48 BP 138 / 70 (auto/); kas2 18:48 Pulse 88 MON; Pulse Ox 93% ; kas2 19:03 BP 126 / 64 (auto/); kas2 19:03 Pulse 84 MON; Pulse Ox 95% ; kas2 19:18 BP 130 / 69 (auto/); kas2 19:18 Pulse 84 MON; Pulse Ox 95% ; kas2 19:33 BP 133 / 79 (auto/); kas2 19:33 Pulse 86 MON; Pulse Ox 96% ; kas2 19:48 BP 129 / 73 (auto/); kas2 19:48 Pulse 90 MON; Pulse Ox 94% ; kas2 20:03 BP 136 / 76 (auto/); kas2 20:03 Pulse 88 MON; Pulse Ox 94% ; kas2 20:18 BP 105 / 57 (auto/); kas2 20:18 Pulse 76 MON; Pulse Ox 93% ; kas2 20:33 BP 104 / 55 (auto/); kas2 20:33 Pulse 80 MON; Pulse Ox 93% ; kas2 20:48 BP 106 / 57 (auto/); kas2 20:48 Pulse 76 MON; Pulse Ox 94% ; kas2 21:03 BP 108 / 56 (auto/); kas2 21:03 Pulse 80 MON; Pulse Ox 92% ; kas2 21:07 Resp 18; Temp 97.9(O); Pain 0/10; kas2 21:18 BP 113 / 62 (auto/); kas2 21:18 Pulse 78 MON; Pulse Ox 92% ; kas2 21:33 BP 100 / 52 (auto/); kas2 21:33 Pulse 82 MON; Pulse Ox 92% ; kas2 21:48 BP 100 / 52 (auto/); kas2 21:48 Pulse 78 MON; Pulse Ox 93% ; kas2 22:03 BP 122 / 70 (auto/); nn1 22:03 Pulse 88 MON; Pulse Ox 93% ; nn1 22:18 BP 125 / 73 (auto/); nn1 22:18 Pulse 84 MON; Pulse Ox 92% ; nn1 22:33 BP 125 / 75 (auto/); nn1 22:33 Pulse 84 MON; Pulse Ox 92% ; nn1 22:48 BP 118 / 71 (auto/); nn1 22:48 Pulse 88 MON; Pulse Ox 93% ; nn1 23:18 BP 133 / 68 (auto/); nn1 23:18 Pulse 88 MON; Pulse Ox 94% ; nn1 23:33 BP 131 / 68 (auto/); nn1 23:33 Pulse 88 MON; Pulse Ox 94% ; nn1 01/01 01:20 Temp 97.6(O); nn1 01:22 BP 126 / 53; Pulse 82; Resp 18; Pulse Ox 95% on R/A; Pain 0/10; kas2 12/31 17:42 Body Mass Index 30.85 (89.36 kg, 170.18 cm) jrd MDM: 12/31 17:49 Retail Asset Protection Specialist/Pulse Ox/q 30 min VS ordered. ml6 17:49 If >35 years old with cardiac risk factors and/or suspicion of acute ischemia- place ml6 directly in room and do STAT EKG ordered. 17:49 If pre-RCE wait time >60 minutes, inform reg. staff to do full reg ordered. ml6 17:49 Oxygen at 2L/min via NC ordered. ml6 17:49 IV Saline Lock ordered. ml6 17:49 Undress patient appropriately for examination ordered. ml6 17:49 BMP Ordered. EDMS 17:49 CBC with Diff Ordered. EDMS 17:49 CIP Ordered. EDMS 17:49 D-Dimer Quant Ordered. EDMS 17:49 Troponin Ordered. EDMS 17:50 Chest, 1 View Ordered. EDMS 17:50 ECG WITH READING ER PHYS+CARDIAG ordered. EDMS 18:18 Aspirin 324 mg PO once ordered. br1 18:18 Nitrostat 0.4 mg Sublingual once ordered. br1 18:42 CBC with Diff Reviewed. br1 18:42 Chest, 1 View Reviewed. br1 18:57 Financial registration complete. gjb 19:04 [place] [place] was scanned into [employer] and attached to record. gjb 19:41 BMP Reviewed. br1 19:41 CIP Reviewed. br1 19:41 D-Dimer Quant Reviewed. br1 19:41 Troponin Reviewed. br1 19:55 Admit to ED Observation status ordered. br1 19:55 Repeat EKG (put time details section) ordered. br1 19:55 Redraw CIP &Troponin (put time in details section) ordered. br1 19:57 Misc. Nursing Order ordered. br1 20:34 Redraw CIP &Troponin (put time in details section) complete. tmm1 20:35 Repeat EKG (put time details section) complete. tmm1 20:36 ECG WITH READING ER PHYS ordered. EDMS 20:36 CARDIAC MARKER PANEL Ordered. EDMS 20:38 Admit to ED Observation status complete. tmm1 01/01 01:15 CARDIAC MARKER PANEL Reviewed. mm11 01:15 EKG-ADULT Reviewed. mm11 11:22 T-Sheet-- Draft Copy was scanned into [employer] and attached to record. gb 11:22 ECG/EKG was scanned into [employer] and attached to record. gb Administered Medications: 12/31 18:31 Drug: Aspirin 324 mg [aspirin 81 mg chewable tablet (4 tabs)] Route: PO; rs3 18:31 Drug: Nitrostat 0.4 mg [Nitrostat 0.4 mg sublingual tablet (1 tabs)] Route: Sublingual; rs3 18:52 Follow up: Response: Pain is decreased rs3 Signatures: Dispatcher [employer] EDMS Caitlyn Argueta, Reg Reg Ezra Thomas DO DO mm11 Loi Mckeon MD MD br1 Ezra Villa, RN RN ml6 McLear, Chani, FUEL ISLAND ATTENDANT FUEL ISLAND ATTENDANT tmm1 Lissa Bautistab Janny Knight RN RN kas2 Eden Bell RN rs3 The chart was reviewed and I authenticate all verbal orders and agree with the evaluation and treatment provided.Attachments: 19:04 [place] Agreement gjb 01/01 11:22 T-Sheet-- Draft Copy gb 11:22 ECG/EKG gb Chart Complete MTDD
--- NOTE | 2017-01-03 02:25 | EDDOCDS ---
Nurse's Notes [facility] Name: Zafar Dooley Age: 61 yrs Sex: Male : 1955 Arrival Date: 12/31/2016 Time: 17:40 Bed 17 Private MD: Diagnosis: Chest pain, unspecified Presentation: 12/31 17:42 Presenting complaint: Patient states: states substernal chest pain radiating to his ml6 back since 0730 this am, patient states pain and pressure 8/10. Aspirin was not taken prior to arrival. Adult Sepsis Screening: The patient does not have new or worsening altered mentation. Patient's respiratory rate is less than 22. Systolic blood pressure is greater than 100. Patient has a qSOFA score of 0- Negative Sepsis Screen. Suicide/Homicide risk assessment- the patient denies having any suicidal and/or homicidal ideations and does not present with any other emotional, behavioral or mental health complaints. Status: Patient is not a field service analyst or dependent. Transition of care: patient was not received from another setting of care. 17:42 Acuity: KORTNEY Level 2 ml6 17:42 Method Of Arrival: Walkin/Carried/Asstd ml6 Triage Assessment: 18:04 General: Appears in no apparent distress, Behavior is appropriate for age, cooperative. ml6 Pain: Location: chest Pain currently is 8 out of 10 on a pain scale. Pain does not radiate. Quality of pain is described as sharp, Pain began 1 day ago Is continuous Alleviated by nothing. Aggravated by. HIV screening NA for this visit. Cardiovascular: Capillary refill < 3 seconds is brisk in bilateral fingers toes Heart tones S1 S2 present Edema is absent. Pulses are all present. Rhythm is regular Chest pain is described as "worst pain of my life", quality is pressure, stabbing, radiates to left arm(s) back episodes are continuous began 0730. Respiratory: No deficits noted. GI: No deficits noted. Abdomen is flat, non- distended Bowel sounds present X 4 quads. Historical: - Allergies: Bees; fire ants; - Home Meds: 1. zolpidem 5 mg Oral tab 1 tab nightly (Last dose: Unknown) 2. tizanidine 4 mg oral tab 1 tab every 8 hours as needed (Last dose: Unknown) 3. promethazine 25 mg Oral tab 1 tab every 6 hours (Last dose: Unknown) 4. omeprazole 40 mg Oral cpDR 1 cap once daily (Last dose: Unknown) 5. lisinopril 20 mg Oral tab 1 tab once daily (Last dose: Unknown) 6. amlodipine 10 mg Oral tab 1 tab once daily (Last dose: Unknown) 7. aspirin 81 mg Oral TbEC 1 tab once daily (Last dose: Unknown) 8. citalopram 40 mg Oral tab 1 tab once daily (Last dose: Unknown) 9. gabapentin 400 mg Oral cap 1 cap 3 times per day (Last dose: Unknown) 10. glimepiride 4 mg Oral tab 1 tab once daily (Last dose: Unknown) 11. levothyroxine 112 mcg Oral tab 1 tab once daily (Last dose: Unknown) 12. meclizine 25 mg Oral tab 1 tab 3 times per day as needed (Last dose: Unknown) 13. metformin 1,000 mg Oral tab 1 tab 2 times per day (Last dose: Unknown) 14. nitroglycerin 0.4 mg SL subl 1 tab every 5 minutes (Last dose: Unknown) 15. pravastatin 40 mg oral tab 1 tab once daily (Last dose: Unknown) - PMHx: TIA; neuropathy; Diabetes - NIDDM: controlled; COPD; Aneurysm, Cerebral; - PSHx: right shoulder; Appendectomy; - Social history: Smoking status: Patient uses tobacco products, heavy tobacco smoker. No barriers to communication noted, Speaks appropriately for age. - Family history: Not pertinent. - : The pt / caregiver states he / she is not on anticoagulants. Home medication list is obtained from the patient. - Exposure Risk Screening:: None identified. Screenin:34 Screening information is obtained from the patient. Fall risk: No risks identified. rs3 Assistance ADL's: requires no assistance with activities of daily living. Abuse/DV Screen: The patient / caregiver reports he/she is: not in a situation that causes fear, pain or injury. Nutritional screening: No deficits noted. home support is adequate. 01/01 01:24 Advance Directives: Currently, there is no health care proxy. There is no active DNR kas2 order. There is no living will. There is no Power of Body Designer. Assessment: 12/31 18:32 General: Appears in no apparent distress, Behavior is appropriate for age, cooperative. rs3 Pain: Location: chest. Cardiovascular: Capillary refill < 3 seconds Clubbing of nail beds is absent Heart tones S1 S2 present Chest pain is described as Pain is 7 out of 10 on a pain scale. quality is squeezing, is located in anterior chest wall radiates to left arm(s) back episodes are intermittent this morning. Cardiovascular: Rhythm is regular Chest pain. Respiratory: Airway is patent Respiratory effort is even, unlabored, Breath sounds are clear bilaterally. Derm: Skin is pink, warm & dry. 20:07 General: Appears in no apparent distress, comfortable, Behavior is appropriate for age, nn1 cooperative. General: Dr. Mckeon approved of patient taking own home medications. Patient aware. Patient aware of plan of care at this time. . Pain: Denies pain. Cardiovascular: Capillary refill < 3 seconds. Respiratory: Airway is patent Respiratory effort is even, unlabored, Respiratory pattern is regular. Derm: Skin is pink, warm & dry. 20:52 Reassessment: Patient appears in no apparent distress at this time. Patient denies pain nn1 at this time. General: Appears in no apparent distress, comfortable, Behavior is appropriate for age, cooperative. 21:05 General: Verbal report given by Laurence Morelos RN. Assumed care of patient at this time.. kas2 22:03 General: Appears in no apparent distress, comfortable, Behavior is appropriate for age, kas2 cooperative. Pain: Denies pain. Neurological: Level of Consciousness is awake, alert, Oriented to person, place, time. Cardiovascular: Capillary refill < 3 seconds Heart tones S1 S2 present Rhythm is regular Chest pain is denied. Respiratory: Airway is patent Respiratory effort is even, unlabored, Respiratory pattern is regular, symmetrical, Breath sounds are clear bilaterally. Derm: Skin is intact, Skin is dry, Skin is pink, warm & dry. Skin temperature is warm. 22:50 General: Appears in no apparent distress, comfortable, Behavior is appropriate for age, nn1 cooperative. Pain: Denies pain. Neurological: Level of Consciousness is awake, alert, Oriented to person, place, time. Cardiovascular: Rhythm is sinus rhythm No ectopy. Respiratory: Airway is patent Respiratory effort is even, unlabored, Respiratory pattern is regular, symmetrical. Derm: Skin is intact, Skin is dry, Skin is pink, warm & dry. Skin temperature is warm. 01/01 00:01 General: Appears in no apparent distress, comfortable, Behavior is appropriate for age, nn1 cooperative. Pain: Denies pain. Neurological: Level of Consciousness is awake, alert, Oriented to person, place, time. Cardiovascular: Rhythm is sinus rhythm No ectopy. Respiratory: Airway is patent Respiratory effort is even, unlabored, Respiratory pattern is regular, symmetrical. Derm: Skin is intact, Skin is dry, Skin is pink, warm & dry. Skin temperature is warm. 01:22 General: Appears in no apparent distress, comfortable, Behavior is appropriate for age, kas2 cooperative. Pain: Denies pain. Neurological: Level of Consciousness is awake, alert, Oriented to person, place, time. Cardiovascular: Rhythm is sinus rhythm No ectopy. Respiratory: Airway is patent Respiratory effort is even, unlabored, Respiratory pattern is regular, symmetrical. Derm: Skin is intact, Skin is dry, Skin is pink, warm & dry. Skin temperature is warm. Vital Signs: 12/31 17:42 BP 185 / 91 RA Sitting (auto/reg); Pulse 78; Resp 18; Temp 96.8; Pulse Ox 95% on R/A; jrd Weight 89.36 kg (R); Height 5 ft. 7 in. (170.18 cm); Pain 8/10; 17:49 BP 139 / 85 (auto/); rs3 17:49 Pulse 76 MON; Pulse Ox 96% ; rs3 18:03 BP 107 / 75 (auto/); kas2 18:03 Pulse 82 MON; Pulse Ox 95% ; kas2 18:18 BP 136 / 79 (auto/); kas2 18:18 Pulse 78 MON; Pulse Ox 94% ; kas2 18:33 BP 127 / 66 (auto/); kas2 18:33 Pulse 96 MON; Pulse Ox 91% ; kas2 18:48 BP 138 / 70 (auto/); kas2 18:48 Pulse 88 MON; Pulse Ox 93% ; kas2 19:03 BP 126 / 64 (auto/); kas2 19:03 Pulse 84 MON; Pulse Ox 95% ; kas2 19:18 BP 130 / 69 (auto/); kas2 19:18 Pulse 84 MON; Pulse Ox 95% ; kas2 19:33 BP 133 / 79 (auto/); kas2 19:33 Pulse 86 MON; Pulse Ox 96% ; kas2 19:48 BP 129 / 73 (auto/); kas2 19:48 Pulse 90 MON; Pulse Ox 94% ; kas2 20:03 BP 136 / 76 (auto/); kas2 20:03 Pulse 88 MON; Pulse Ox 94% ; kas2 20:18 BP 105 / 57 (auto/); kas2 20:18 Pulse 76 MON; Pulse Ox 93% ; kas2 20:33 BP 104 / 55 (auto/); kas2 20:33 Pulse 80 MON; Pulse Ox 93% ; kas2 20:48 BP 106 / 57 (auto/); kas2 20:48 Pulse 76 MON; Pulse Ox 94% ; kas2 21:03 BP 108 / 56 (auto/); kas2 21:03 Pulse 80 MON; Pulse Ox 92% ; kas2 21:07 Resp 18; Temp 97.9(O); Pain 0/10; kas2 21:18 BP 113 / 62 (auto/); kas2 21:18 Pulse 78 MON; Pulse Ox 92% ; kas2 21:33 BP 100 / 52 (auto/); kas2 21:33 Pulse 82 MON; Pulse Ox 92% ; kas2 21:48 BP 100 / 52 (auto/); kas2 21:48 Pulse 78 MON; Pulse Ox 93% ; kas2 22:03 BP 122 / 70 (auto/); nn1 22:03 Pulse 88 MON; Pulse Ox 93% ; nn1 22:18 BP 125 / 73 (auto/); nn1 22:18 Pulse 84 MON; Pulse Ox 92% ; nn1 22:33 BP 125 / 75 (auto/); nn1 22:33 Pulse 84 MON; Pulse Ox 92% ; nn1 22:48 BP 118 / 71 (auto/); nn1 22:48 Pulse 88 MON; Pulse Ox 93% ; nn1 23:18 BP 133 / 68 (auto/); nn1 23:18 Pulse 88 MON; Pulse Ox 94% ; nn1 23:33 BP 131 / 68 (auto/); nn1 23:33 Pulse 88 MON; Pulse Ox 94% ; nn1 01/01 01:20 Temp 97.6(O); nn1 01:22 BP 126 / 53; Pulse 82; Resp 18; Pulse Ox 95% on R/A; Pain 0/10; kas2 12/31 17:42 Body Mass Index 30.85 (89.36 kg, 170.18 cm) jrd Vitals: 12/31 17:42 Log In Time: December 31, 2016 at 17:34. RN notified that patient meets Red Flag jrd criteria. ED Course: 17:42 Patient visited by Carl Sorensen PCA. jrd 17:42 Patient moved to Waiting jrd 17:43 Patient visited by Carl Sorensen PCA. jrd 17:49 Patient moved to 17 ml6 18:02 Triage Initiated ml6 18:03 Shen Mckeon MD is Attending Physician. br1 18:05 EKG done. (by ED staff). Reviewed by Stacey Eisenberg MD. jlf 18:12 Patient visited by Dong Rivera PCA. jlf 18:12 Pt greeted and oriented to ED. Patient advised of names of staff involved in care, jlf location of call walters, wait times and NPO status. Accompanied by Family Member, Patient has correct armband on for positive identification. Bed in low position. carpenter rough on. Pulse ox on. NIBP on. 18:13 Patient visited by Dong Rivera PCA. jlf 18:17 Patient visited by Shen Mckeon MD. br1 18:34 Inserted saline lock: 20 gauge in right antecubital area and blood collected. The rs3 patient tolerated the procedure well. Labs drawn. (by ED staff). 18:34 Chest, 1 View Returned. EDMS 18:52 Patient visited by Eden Bell RN. rs3 19:04 [facility] Payment Agreement was scanned into [employer] and attached to record. gjb 19:45 Patient visited by Shen Mckeon MD. br1 20:21 Patient visited by González Medrano RN. nn1 20:52 Patient visited by González Medrano RN. nn1 21:07 Patient visited by Janny Knight RN. kas2 21:08 EKG-ADULT Returned. EDMS 22:04 Patient visited by Janny Knight RN. kas2 22:14 Janny Knight RN is Primary Nurse. kas2 22:38 Patient visited by Janny Knight RN. kas2 22:51 Patient visited by González Medrano RN. nn1 23:32 Patient visited by Janny Knight RN. kas2 23:54 CARDIAC MARKER PANEL Sent. nn1 23:58 Patient visited by González Medrano RN. nn1 02 00:02 Patient visited by Arjun Mayberry PCA. jmv 00:02 EKG done. (by ED staff). Reviewed by Shen Mckeon MD. jmv 00:03 Patient visited by González Medrano RN. nn1 00:22 Attending Physician role handed off by Shen Mckeon MD mm11 00:22 Ezra Ponce DO is Attending Physician. mm11 00:38 Patient visited by González Medrano RN. nn1 01:08 Patient visited by González Medrano RN. nn1 01:18 Jonn Oneal PA is Referral Physician. mm11 01:23 Discontinued IV bleeding controlled, pressure dressing applied, No redness/swelling at kas2 site. No procedures done that require assistance. 01:24 The patient / caregiver is instructed regarding the plan of care and ED course. [facility] 11:22 T-Sheet-- Draft Copy was scanned into [employer] and attached to record. 11:22 ECG/EKG was scanned into [employer] and attached to record. gb 02 08:41 ECG WITH READING ER PHYS Returned. EDMS Administered Medications: 12/31 18:31 Drug: Aspirin 324 mg [aspirin 81 mg chewable tablet (4 tabs)] Route: PO; rs3 18:31 Drug: Nitrostat 0.4 mg [Nitrostat 0.4 mg sublingual tablet (1 tabs)] Route: Sublingual; rs3 18:52 Follow up: Response: Pain is decreased rs3 Order Results: Lab Order: BMP; SPEC'M 12/31/16 18:11 Test: GLUCOSE, FASTING; Value: 173; Range: 70-105; Abnormal: Above high normal; Units: MG/DL; Status: F Test: BLOOD UREA NITROGEN; Value: 17; Range: 7-18; Units: MG/DL; Status: F Test: CREATININE FOR GFR; Value: 0.91; Range: 0.70-1.30; Units: MG/DL; Status: F Test: GLOMERULAR FILTRATION RATE; Value: > 60.0; Range: >56; Status: F Test: SODIUM LEVEL; Value: 138; Range: 136-145; Units: MEQ/L; Status: F Test: POTASSIUM SERUM; Value: 3.9; Range: 3.5-5.1; Units: MEQ/L; Status: F Test: CHLORIDE LEVEL; Value: 103; Range: 98-107; Units: MEQ/L; Status: F Test: CARBON DIOXIDE LEVEL; Value: 25; Range: 21-32; Units: MEQ/L; Status: F Test: ANION GAP; Value: 10; Range: 8-16; Units: MEQ/L; Status: F Test: CALCIUM LEVEL; Value: 9.1; Range: 8.5-10.1; Units: MG/DL; Status: F Test Note: ; Units are mL/min/1.73 m2 Chronic Kidney Disease Staging per NKF: Stage I & II GFR >=60 Normal to Mildly Decreased Stage III GFR 30-59 Moderately Decreased Stage IV GFR 15-29 Severely Decreased Stage V GFR <15 Very Little GFR Left ESRD GFR <15 on RENTAL [employer]IVER Lab Order: CBC with Diff; SPEC'M 12/31/16 18:11 Test: WHITE BLOOD COUNT; Value: 10.2; Range: 4.0-10.0; Abnormal: Above high normal; Units: K/mm3; Status: F Test: RED BLOOD COUNT; Value: 4.74; Range: 4.30-6.10; Units: M/mm3; Status: F Test: HEMOGLOBIN; Value: 15.2; Range: 14.0-18.0; Units: g/dl; Status: F Test: HEMATOCRIT; Value: 43.5; Range: 42.0-52.0; Units: %; Status: F Test: MEAN CORPUSCULAR VOLUME; Value: 91.8; Range: 80.0-96.0; Units: fl; Status: F Test: MEAN CORPUSCULAR HEMOGLOBIN; Value: 32.2; Range: 27.0-33.0; Units: pg; Status: F Test: MEAN CORPUSCULAR HGB CONC; Value: 35.0; Range: 32.0-36.5; Units: g/dl; Status: F Test: RED CELL DISTRIBUTION WIDTH; Value: 12.9; Range: 11.5-14.5; Units: %; Status: F Test: PLATELET COUNT, AUTOMATED; Value: 319; Range: 150-450; Units: k/mm3; Status: F Test: NEUTROPHILS %; Value: 54.4; Range: 36.0-66.0; Units: %; Status: F Test: LYMPH %; Value: 34.0; Range: 24.0-44.0; Units: %; Status: F Test: MONO %; Value: 5.2; Range: 0.0-5.0; Abnormal: Above high normal; Units: %; Status: F Test: EOS %; Value: 3.8; Range: 0.0-3.0; Abnormal: Above high normal; Units: %; Status: F Test: BASO %; Value: 0.5; Range: 0.0-1.0; Units: %; Status: F Test: LARGE UNSTAINED CELL %; Value: 2.0; Range: 0.0-4.0; Units: %; Status: F Test: NEUTROPHILS #; Value: 5.6; Range: 1.8-7.7; Units: K/mm3; Status: F Test: LYMPH #; Value: 3.7; Range: 1.5-4.5; Units: K/mm3; Status: F Test: MONO #; Value: 0.5; Range: 0.0-0.8; Units: K/mm3; Status: F Test: EOS #; Value: 0.4; Range: 0.0-0.50; Units: K/mm3; Status: F Test: BASO #; Value: 0.1; Range: 0.0-0.2; Units: K/mm3; Status: F Test: LARGE UNSTAINED CELL #; Value: 0.2; Range: 0.0-0.4; Units: K/mm3; Status: F Lab Order: CIP; SPEC'M 12/31/16 18:11 Test: CPK CREATINE PHOSPHOKINASE; Value: 105; Range: 39-308; Units: U/L; Status: F Test: CK-MB VALUE MASS; Value: 1.0; Range: 0.0-3.6; Units: NG/ML; Status: F Test: MB/CK RELATIVE INDEX; Value: 0.95; Range: < OR =4; Status: F Test Note: ; DIAGNOSIS CRITERIA MMB ng/ml Relative Index (RI) NON-AMI < or = 5 N/A [place]ONE > 5 < or = 4 AMI > 5 > 4 Lab Order: D-Dimer Quant; SPEC'M 12/31/16 18:11 Test: D-DIMER QUANT; Value: 352.1; Range: <500; Units: ng/ml; Status: F Lab Order: Troponin; SPEC'M 12/31/16 18:11 Test: TROPONIN I; Value: < 0.02; Range: < 0.10; Units: NG/ML; Status: F Test Note: ; Troponin I Reference Interval for [place] LOCI: 99th Percentile= 0.00-0.045 ng/ml Risk Stratification: <= 0.10 ng/ml Decreased Risk for Adverse Clinical Events. 0.10-1.50 ng/ml Increased Risk for Adverse Clinical Events. Evaluation of additional criterion and/or repeat testing in 2-6 hours is suggested to rule out myocardial damage. >= 1.50 ng/ml Indicative of Myocardial Injury. Lab Order: CARDIAC MARKER PANEL; SPEC'M 12/31/16 23:55 Test: CPK CREATINE PHOSPHOKINASE; Value: 90; Range: 39-308; Units: U/L; Status: F Test: CK-MB VALUE MASS; Value: 1.0; Range: 0.0-3.6; Units: NG/ML; Status: F Test: MB/CK RELATIVE INDEX; Value: 1.11; Range: < OR =4; Status: F Test: TROPONIN I; Value: < 0.02; Range: < 0.10; Units: NG/ML; Status: F Test Note: ; DIAGNOSIS CRITERIA MMB ng/ml Relative Index (RI) NON-AMI < or = 5 N/A [place]ONE > 5 < or = 4 AMI > 5 > 4 Radiology Order: Chest, 1 View Test: Chest, 1 View REASON FOR EXAMINATION: Chest Pain; Clinical: Chest pain .; ; Comparison: 05/30/2016 .; ; Findings:; The mediastinum and cardiac silhouette are stable and within normal limits for; portable technique. The lung flanagan are clear without acute consolidation,; effusion, or pneumothorax. 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; : 1955 Requested By: Stacey Eisenberg; Order Number: [id number] Reading MD: Stacey Eisenberg; Measurements; Intervals [place]; Rate: 77 P: 48; IN: 129 QRS: 7; QRSD: 98 T: 64; QT: 386; QTc: 439; Interpretive Statements; SINUS RHYTHM; NSTTW ABNORMALITY; PRWP; DECREASED RATE 05/3005/30/16; Electronically Signed On 12-31-2016 20:29:26 EST by Stacey Eisenberg; Radiology Order: ECG WITH READING ER PHYS Test: ECG WITH READING ER PHYS REASON FOR EXAMINATION: CHEST TIGHTNESS; Stationary ECG Study; [facility] ED; ; Test Date: 2016-12-31; Pat Name: ZAFAR DOOLEY Department:; Room: -; Gender: M 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 mm11 01:23 Discharge Assessment: patient administered narcotics - no. The following High Risk [facility] Discharge criteria are identified: None. Discharged to home ambulatory, with family. Condition: good Condition: stable Condition: improved. CT Study completed. Property :Personal belongings accompany Pt. 01:25 Patient left the ED. kas2 Signatures: Dispatcher [employer] EDCaitlyn Wilson, Reg Reg Ezra Thomas, DO DO mm11 Shen Mckeon MD MD br1 Ray,Eden,RN RN rs3 Ezra Villa, RN RN ml6 Dong Rivera, PILOT PLANT OPERATOR PILOT PLANT OPERATOR jlf Carl Sorensen, PILOT PLANT OPERATOR PILOT PLANT OPERATOR jrd Mitchell,González,RN RN nn1 Lissa Bautista Kim,RN RN kas2 Arjun Mayberry, PILOT PLANT OPERATOR PILOT PLANT OPERATOR jmv Chart Complete MTDD
== END 2017-01-01 01:25 | disposition home or self-care (01) ==
LOC: M ED 17:40
DX: R07.9 Chest pain, unspecified (principal); E11.40 Type 2 diabetes mellitus with diabetic neuropathy, unspecified; J44.9 Chronic obstructive pulmonary disease, unspecified; Z86.73 Personal history of transient ischemic attack (TIA), and cerebral infarction without residual deficits; Z86.79 Personal history of other diseases of the circulatory system; Z72.0 Tobacco use; Z79.82 Long term (current) use of aspirin; Z79.84 Long term (current) use of oral hypoglycemic drugs; Z79.899 Other long term (current) drug therapy; Z91.030 Bee allergy status; Z91.038 Other insect allergy status

== ENCOUNTER → 2017-06-19 | Outpatient (CLI) | payer MEDICARE ==
--- NOTE | 2017-06-19 17:59 | REP ---
LUMBAR SPINE, FIVE VIEWS: HISTORY: Back pain. There is no acute fracture or subluxation. The L3-4 through L5-S1 intervertebral discs are decreased in height consistent with disc degeneration. Osteophytes are present on L4 and 5. The facet joints are normal in appearance. IMPRESSION: Degenerative change as described above. Signed by Jered Acosta MD 06/20/2017 08:30 A
== END ==
LOC: M WUC 16:26
PROVIDERS: ATTEND Nurse Practitioner Family
DX: M54.41 Lumbago with sciatica, right side (principal)

== ENCOUNTER → 2017-07-10 | Outpatient (CLI) | payer MEDICARE ==
--- NOTE | 2017-07-10 10:35 | REP ---
CT LUMBAR SPINE WITHOUT CONTRAST: HISTORY: Right sciatica. There are four lumbar type vertebral bodies. Hypoplastic ribs are present on T12. The lowest intervertebral disc is assumed to be the L4-S1 intervertebral disc. There is no disc bulge or herniation at the T12-L1, L1-2 and L4-S1 levels. There is hypertrophy of the posterior articulating facets at the L4-S1 level. The nerves exit the neural foramina without compression. A diffuse disc bulge is present at the L2-3 level. There is minimal compression of the thecal sac. There is hypertrophy of the posterior articulating facets. The L2 nerves exit the neural foramina without compression. A diffuse disc bulge is present at the L3-4 level. There is minimal compression of the thecal sac. There is minimal compression of the thecal sac. There is hypertrophy of the posterior articulating facets. The L3 nerves exit the neural foramina without compression. The L3-4 intervertebral disc is decreased in height consistent with disc degeneration. The vertebral bodies are normal in height. There is no subluxation. IMPRESSION: Diffuse disc bulges at the L2-3 and L3-4 levels with minimal thecal sac compression. Signed by Jered Acosta MD 07/10/2017 10:41 A
== END ==
LOC: M RAD 09:31
PROVIDERS: ATTEND Nurse Practitioner Family
DX: M51.26 Other intervertebral disc displacement, lumbar region (principal)

== ENCOUNTER → 2017-08-15 | Outpatient (CLI) | payer MEDICARE ==
[2017-08-15 17:58] LABS: ALBUMIN 3.9 GM/DL (3.2-5.2); ALBUMIN/GLOBULIN RATIO 1.44 (1.00-1.93); ALKALINE PHOSPHATASE 54 U/L (45-117); ALT/SGPT 68 U/L (12-78); ANION GAP 8 MEQ/L (8-16); AST/SGOT 44 U/L (15-37); BILIRUBIN,TOTAL 0.4 MG/DL (0.2-1.0); BLOOD UREA NITROGEN 13 MG/DL (7-18); CALCIUM LEVEL 8.7 MG/DL (8.5-10.1); CARBON DIOXIDE LEVEL 28 MEQ/L (21-32); CHLORIDE LEVEL 102 MEQ/L (98-107); CHOLESTEROL LEVEL 174 MG/DL (<200); CREATININE FOR GFR 0.78 MG/DL (0.70-1.30); FREE T4 1.17 NG/DL (0.76-1.46); GLOMERULAR FILTRATION RATE > 60.0 (>56); GLUCOSE, FASTING 142 MG/DL (70-105); POTASSIUM SERUM 4.2 MEQ/L (3.5-5.1); SODIUM LEVEL 138 MEQ/L (136-145); TOTAL PROTEIN 6.6 GM/DL (6.4-8.2); TRIGLYCERIDES LEVEL 550 MG/DL (<150)
== END ==
LOC: M WUC 11:27
PROVIDERS: ATTEND Nurse Practitioner Family
DX: E03.9 Hypothyroidism, unspecified (principal)

== ENCOUNTER → 2017-09-30 | Outpatient (CLI) | payer MEDICARE ==
--- NOTE | 2017-09-30 09:58 | REP ---
Clinical: Pain. Technique: AP, lateral, bilateral oblique and sunrise views right knee. Findings: [place] view demonstrates increase sclerosis along the posterior patellar margin with decreased patellofemoral joint space. Remainder examination appears normal for age. No acute fracture dislocation. No obvious effusion. Impression: Moderate degenerative changes related to the patellofemoral joint. Signed by Hudson Lee MD 09/30/2017 09:50 A
== END ==
LOC: M WUC 09:15
PROVIDERS: ATTEND Nurse Practitioner Family
DX: M17.11 Unilateral primary osteoarthritis, right knee (principal)

== ENCOUNTER → 2017-10-14 | Outpatient (CLI) | payer MEDICARE ==
--- NOTE | 2017-10-15 06:07 | REP ---
MRI right knee without contrast: 10/14/2017. Clinical history: Right knee pain, swelling. Symptoms most severe posteromedial Denies known trauma. Comparison 09/30/2017 x-ray. Technique: Axial fat suppressed T2 with PD and fat suppressed T2 sequences and coronal and sagittal projections provided. Findings: Both the ACL and PCL are grossly intact. I see transverse meniscal ligaments of Aguilera and Wrisberg anterior and posterior to the PCL respectively. Fluid seen in the intercondylar notch. There is a joint effusion with a suprapatellar plica. There is some marrow edema in the anterior peripheral aspects of the medial tibial plateau. Oblique grade 3 signal in the posterior horn of the medial meniscus continues to the inferior margin and the posterior margin as well as other features of complex tear with parrot beak type deformities of the posterior horn anteriorly and the body of the meniscus. I do not see a definite loose body. There is chondromalacia. This is grade 1-2 tibial plateau and femoral condyle. No bone bruise femoral condyle. No osteochondral lesion. Medial collateral ligamentous complex intact. There is some edema and subcutaneous fluid along the attenuated medial patellar retinaculum but without a definite tear there. I do not see a significant popliteal fossa cyst at this time. The lateral meniscus shows no evidence of an intrameniscal tear or signal abnormality to suggest a loose body in the lateral compartment. No chondromalacia femoral condyle and some minimal grade 1 changes in the tibial plateau. Lateral collateral ligamentous complex, patellar retinaculum intact although there is small amount of fluid deep to the retinaculum adjacent to the lateral femoral condyle. I do not see patellar subluxation or dislocation. There is some fissuring of the central patella cartilage between the medial and lateral facets. Extensor mechanism shows quadriceps and patellar tendons intact. Impression: 1. There is a complex tear in the posterior horn and body of the medial meniscus with tricompartment joint effusion mild to moderate, suprapatellar plica, chondromalacia medial in the compartment and bone bruise in the peripheral and anterior margin of the medial tibial plateau. I do not see fracture line in any of the bones. 2. Cruciate ligaments, lateral meniscus, collateral ligamentous complexes, extensor mechanism, and patellar retinacula without acute tear. There is subcutaneous edema medial aspect of the knee adjacent to an attenuated medial patellar retinaculum but no tear of that retinaculum. 3. No patellar subluxation or dislocation. No fracture. Some fissuring between the medial and lateral patellar facets centrally. No other acute finding. Signed by Prashanth Sneed MD 10/15/2017 08:23 P
== END ==
LOC: M RAD 15:13
PROVIDERS: ATTEND Nurse Practitioner Family
DX: M25.561 Pain in right knee (principal)

== ENCOUNTER → 2017-11-29 | Outpatient (CLI) | payer MEDICARE ==
[2017-11-29 13:24] LABS: ANION GAP 9 MEQ/L (8-16); BLOOD UREA NITROGEN 22 MG/DL (7-18); CALCIUM LEVEL 9.4 MG/DL (8.8-10.2); CARBON DIOXIDE LEVEL 26 MEQ/L (21-32); CHLORIDE LEVEL 105 MEQ/L (98-107); CREATININE FOR GFR 0.83 MG/DL (0.70-1.30); GLOMERULAR FILTRATION RATE > 60.0 (>49); GLUCOSE, FASTING 141 MG/DL (80-110); POTASSIUM SERUM 4.4 MEQ/L (3.5-5.1); SODIUM LEVEL 140 MEQ/L (136-145)
== END ==
LOC: M LAB 11:07
DX: Z01.812 Encounter for preprocedural laboratory examination (principal); E11.9 Type 2 diabetes mellitus without complications; I10 Essential (primary) hypertension; S83.241A Other tear of medial meniscus, current injury, right knee, initial encounter; X58.XXXA Exposure to other specified factors, initial encounter; Y92.89 Other specified places as the place of occurrence of the external cause; Y93.89 Activity, other specified; Y99.8 Other external cause status
CPT/HCPCS: 93005

== ENCOUNTER → 2017-12-20 | Outpatient (CLI) | payer MEDICARE ==
[2017-12-20 14:02] LABS: BASO # 0.1 10^3/uL (0.0-0.2); BASO % 0.5 % (0.0-1.0); EOS # 0.4 10^3/uL (0.0-0.50); EOS % 4.5 % (0.0-3.0); HEMATOCRIT 43.6 % (42.0-52.0); HEMOGLOBIN 14.2 g/dl (14.0-18.0); IMMATURE GRANULOCYTE % 0.4 % (0-3.0); LYMPH # 3.7 10^3/uL (1.5-4.5); LYMPH % 40.1 % (24.0-44.0); MEAN CORPUSCULAR HEMOGLOBIN 30.1 pg (27.0-33.0); MEAN CORPUSCULAR HGB CONC 32.6 g/dl (32.0-36.5); MEAN CORPUSCULAR VOLUME 92.6 fl (80.0-96.0); MONO # 0.7 10^3/uL (0.0-0.8); MONO % 7.6 % (0.0-5.0); NEUTROPHILS # 4.3 10^3/uL (1.8-7.7); NEUTROPHILS % 46.9 % (36.0-66.0); PLATELET COUNT, AUTOMATED 293 10^3/uL (150-450); RED BLOOD COUNT 4.71 10^6/uL (4.30-6.10); RED CELL DISTRIBUTION WIDTH 12.8 % (11.5-14.5); WHITE BLOOD COUNT 9.1 10^3/uL (4.0-10.0)
[2017-12-20 14:25] LABS: ESTIMATED AVERAGE GLUCOSE 154 MG/DL (60-110)
[2017-12-20 14:39] LABS: ALBUMIN 4.3 GM/DL (3.2-5.2); ALBUMIN/GLOBULIN RATIO 1.54 (1.00-1.93); ALKALINE PHOSPHATASE 57 U/L (45-117); ALT/SGPT 63 U/L (12-78); ANION GAP 5 MEQ/L (8-16); AST/SGOT 38 U/L (7-37); BILIRUBIN,TOTAL 0.4 MG/DL (0.2-1.0); BLOOD UREA NITROGEN 18 MG/DL (7-18); CALCIUM LEVEL 9.4 MG/DL (8.8-10.2); CARBON DIOXIDE LEVEL 32 MEQ/L (21-32); CHLORIDE LEVEL 101 MEQ/L (98-107); CHOLESTEROL LEVEL 170 MG/DL (<200); CHOLESTEROL RISK RATIO 5.483 (<5); CREATININE FOR GFR 0.87 MG/DL (0.70-1.30); FREE T4 1.13 NG/DL (0.76-1.46); GLOMERULAR FILTRATION RATE > 60.0 (>49); GLUCOSE, FASTING 134 MG/DL (70-100); HDL CHOLESTEROL 31 MG/DL (>40); LDL CHOLESTEROL 64.2 MG/DL (<100); NON-HDL-C 139 MG/DL; SODIUM LEVEL 138 MEQ/L (136-145); TOTAL PROTEIN 7.1 GM/DL (6.4-8.2); TRIGLYCERIDES LEVEL 374 MG/DL (<150)
== END ==
LOC: M WUC 09:49
DX: I10 Essential (primary) hypertension (principal); E11.9 Type 2 diabetes mellitus without complications; E03.9 Hypothyroidism, unspecified; E78.5 Hyperlipidemia, unspecified
CPT/HCPCS: 84443

== ENCOUNTER 2018-07-01 14:56 | Emergency (ER) | payer MEDICARE ==
[2018-07-01] MEDS: ASPIRIN 81 MG CHEW TABLET PO (16:06)
[2018-07-01 16:08] LABS: BASO # 0.1 10^3/uL (0.0-0.2); BASO % 0.7 % (0.0-1.0); EOS # 0.3 10^3/uL (0.0-0.50); EOS % 2.9 % (0.0-3.0); HEMATOCRIT 41.3 % (42.0-52.0); HEMOGLOBIN 14.1 g/dl (13.5-17.5); IMMATURE GRANULOCYTE % 0.7 % (0-3.0); LYMPH # 3.6 10^3/uL (1.5-4.5); LYMPH % 34.3 % (24.0-44.0); MEAN CORPUSCULAR HEMOGLOBIN 31.2 pg (27.0-33.0); MEAN CORPUSCULAR HGB CONC 34.1 g/dl (32.0-36.5); MEAN CORPUSCULAR VOLUME 91.4 fl (80.0-96.0); MONO # 0.8 10^3/uL (0.0-0.8); MONO % 7.7 % (0.0-5.0); NEUTROPHILS # 5.7 10^3/uL (1.8-7.7); NEUTROPHILS % 53.7 % (36.0-66.0); PLATELET COUNT, AUTOMATED 310 10^3/uL (150-450); RED BLOOD COUNT 4.52 10^6/uL (4.30-6.10); WHITE BLOOD COUNT 10.5 10^3/uL (4.0-10.0)
[2018-07-01 16:11] LABS: INR 0.92; PROTHROMBIN TIME 12.4 SECONDS (12.1-14.4)
[2018-07-01 16:12] LABS: PARTIAL THROMBOPLASTIN TIME 28.5 SECONDS (25.4-37.6)
[2018-07-01 16:22] LABS: ANION GAP 9 MEQ/L (8-16); BLOOD UREA NITROGEN 23 MG/DL (7-18); CALCIUM LEVEL 8.8 MG/DL (8.8-10.2); CARBON DIOXIDE LEVEL 26 MEQ/L (21-32); CHLORIDE LEVEL 105 MEQ/L (98-107); CK-MB VALUE MASS < 1.0 NG/ML (<3.6); CPK CREATINE PHOSPHOKINASE 161 U/L (39-308); CREATININE FOR GFR 1.15 MG/DL (0.70-1.30); GLOMERULAR FILTRATION RATE > 60.0 (>49); GLUCOSE, FASTING 128 MG/DL (70-100); MB/CK RELATIVE INDEX 0.62 (< OR =4); POTASSIUM SERUM 3.8 MEQ/L (3.5-5.1); SODIUM LEVEL 140 MEQ/L (136-145); TROPONIN I < 0.02 NG/ML (< 0.10)
[2018-07-01] MEDS: MECLIZINE 25 MG TABLET PO (19:06)
== END 2018-07-01 19:17 | disposition home or self-care (01) ==
LOC: M ED 14:56
DX: R42 Dizziness and giddiness (principal); R26.2 Difficulty in walking, not elsewhere classified; E11.9 Type 2 diabetes mellitus without complications; I10 Essential (primary) hypertension; E78.5 Hyperlipidemia, unspecified; E03.9 Hypothyroidism, unspecified; F41.9 Anxiety disorder, unspecified; Z86.73 Personal history of transient ischemic attack (TIA), and cerebral infarction without residual deficits; F17.200 Nicotine dependence, unspecified, uncomplicated; Z79.899 Other long term (current) drug therapy; Z79.84 Long term (current) use of oral hypoglycemic drugs
CPT/HCPCS: 70551

== ENCOUNTER → 2018-07-18 | Outpatient (CLI) | payer MEDICARE | LOC: M WUC 08:09 | DX: M25.78 Osteophyte, vertebrae (principal); M54.2 Cervicalgia | CPT/HCPCS: 72052 ==

== ENCOUNTER → 2019-01-09 | Outpatient (CLI) | payer MEDICARE ==
[~2019-01-09] MED LIST: AMLO10TA5; AUGM875T28 PO; CITA20TA4; DOXY100C37 PO; FENO54TA2; GABA600T4; GLIM4TAB; GUAI1SOL2 PO; LEVO112T2; LISI-538; MECL1CHW2 PO; METF10004; OMEP40CA2; PRAV40TA2; TIZA4CAP; ZOLP5TAB
[2019-01-09 12:35] LABS: HEMATOCRIT 42.8 % (42.0-52.0); HEMOGLOBIN 14.1 g/dl (13.5-17.5); MEAN CORPUSCULAR HEMOGLOBIN 30.7 pg (27.0-33.0); MEAN CORPUSCULAR HGB CONC 32.9 g/dl (32.0-36.5); MEAN CORPUSCULAR VOLUME 93.2 fl (80.0-96.0); PLATELET COUNT, AUTOMATED 330 10^3/uL (150-450); RED BLOOD COUNT 4.59 10^6/uL (4.30-6.10); WHITE BLOOD COUNT 9.9 10^3/uL (4.0-10.0)
[2019-01-09 12:58] LABS: ATYPICAL LYMPH 10 % (0-5); EOSINOPHILS 3 % (0-5); LYMPHOCYTES 39 % (16-52); MONOCYTES 3 % (0-8); NEUTROPHILS 45 % (35-75)
[2019-01-09 13:00] LABS: PLATELET ESTIMATE NORMAL (NORMAL)
[2019-01-09 13:08] LABS: ALBUMIN 3.8 GM/DL (3.2-5.2); ALT/SGPT 57 U/L (12-78); BILIRUBIN,TOTAL 0.4 MG/DL (0.2-1.0); BLOOD UREA NITROGEN 20 MG/DL (7-18); CALCIUM LEVEL 8.5 MG/DL (8.8-10.2); CARBON DIOXIDE LEVEL 29 MEQ/L (21-32); CHLORIDE LEVEL 104 MEQ/L (98-107); CHOLESTEROL LEVEL 184 MG/DL (<200); CREATININE FOR GFR 0.86 MG/DL (0.70-1.30); FREE T3 2.8 PG/ML (2.2-4.0); FREE T4 1.14 NG/DL (0.76-1.46); GLOMERULAR FILTRATION RATE > 60.0 (>49); GLUCOSE, FASTING 178 MG/DL (70-100); HDL CHOLESTEROL 32 MG/DL (>40); LDL CHOLESTEROL 83 MG/DL (<100); NON-HDL-C 152 MG/DL; POTASSIUM SERUM 4.5 MEQ/L (3.5-5.1); SODIUM LEVEL 138 MEQ/L (136-145); TOTAL PROTEIN 6.8 GM/DL (6.4-8.2); TRIGLYCERIDES LEVEL 345 MG/DL (<150)
[2019-01-09 13:16] LABS: HEMOGLOBIN A1c 8.3 %
== END ==
LOC: M WUC 09:07
PROVIDERS: ATTEND Nurse Practitioner Family
DX: I10 Essential (primary) hypertension (principal); E03.9 Hypothyroidism, unspecified; E78.5 Hyperlipidemia, unspecified; E11.9 Type 2 diabetes mellitus without complications

== ENCOUNTER 2019-01-14 07:29 | Emergency (ER) | payer MEDICARE ==
[~2019-01-14] VITALS: Ht 170.2 cm; Wt 89.5 kg
[~2019-01-14 07:29] MED LIST changes: -AUGM875T28 PO; -DOXY100C37 PO; -GUAI1SOL2 PO
[2019-01-14] MEDS ORDERED: diphenhydrAMINE INJ 50MG/ML VIAL (J1200) IV ONE (08:00)
[2019-01-14] MEDS ORDERED: METOCLOPRAMIDE INJ 10MG/2ML VIAL (J2765) IV ONE (08:00)
[2019-01-14] MEDS ORDERED: NS 1,000 ML IV ONE (08:00)
[2019-01-14] MEDS ORDERED: ACETAMINOPHEN 500 MG TAB PO ONE (08:00)
[2019-01-14 08:16] LABS: BASO # 0.1 10^3/uL (0.0-0.2); BASO % 0.8 % (0.0-1.0); EOS # 0.3 10^3/uL (0.0-0.50); EOS % 2.5 % (0.0-3.0); HEMATOCRIT 44.4 % (42.0-52.0); LYMPH # 4.4 10^3/uL (1.5-4.5); LYMPH % 36.8 % (24.0-44.0); MEAN CORPUSCULAR HEMOGLOBIN 31.2 pg (27.0-33.0); MEAN CORPUSCULAR HGB CONC 33.8 g/dl (32.0-36.5); MEAN CORPUSCULAR VOLUME 92.3 fl (80.0-96.0); MONO # 0.9 10^3/uL (0.0-0.8); MONO % 7.4 % (0.0-5.0); NEUTROPHILS # 6.2 10^3/uL (1.8-7.7); NEUTROPHILS % 51.6 % (36.0-66.0); PLATELET COUNT, AUTOMATED 364 10^3/uL (150-450); RED BLOOD COUNT 4.81 10^6/uL (4.30-6.10)
[2019-01-14 08:46] LABS: INFLUENZA A AMPLIFICATION NEGATIVE (NEGATIVE); INFLUENZA B AMPLIFICATION NEGATIVE (NEGATIVE)
[2019-01-14 08:47] LABS: ERYTHROCYTE SEDIMENTATION RATE 15 mm/hr (0-20)
[2019-01-14 08:57] LABS: ALT/SGPT 36 U/L (12-78); BILIRUBIN,DIRECT < 0.1 MG/DL (0.0-0.2); BILIRUBIN,TOTAL 0.4 MG/DL (0.2-1.0); BLOOD UREA NITROGEN 22 MG/DL (7-18); CALCIUM LEVEL 9.5 MG/DL (8.8-10.2); CARBON DIOXIDE LEVEL 24 MEQ/L (21-32); CHLORIDE LEVEL 103 MEQ/L (98-107); CK-MB VALUE MASS < 1.0 NG/ML (<3.6); CPK CREATINE PHOSPHOKINASE 112 U/L (39-308); CREATININE FOR GFR 0.75 MG/DL (0.70-1.30); GLOMERULAR FILTRATION RATE > 60.0 (>49); GLUCOSE, FASTING 172 MG/DL (70-100); MB/CK RELATIVE INDEX 0.89 (< OR =4); POTASSIUM SERUM 4.6 MEQ/L (3.5-5.1); SODIUM LEVEL 137 MEQ/L (136-145); TOTAL PROTEIN 7.7 GM/DL (6.4-8.2); TROPONIN I < 0.02 NG/ML (< 0.10)
--- NOTE | 2019-01-14 09:02 | REP ---
Chest x-ray: Two views. History: Chest pain. Comparison study: July 01, 2018. Findings: EKG monitoring electrodes overlie the chest. Lungs are well inflated and clear. Pleural angles are sharp. Heart size is normal. Pulmonary vasculature is not increased. No significant bony abnormality. Impression: Negative chest x-ray. Electronically Signed by Hu Stafford MD 01/14/2019 08:53 A
--- NOTE | 2019-01-14 09:03 | REP ---
CT BRAIN WITHOUT CONTRAST: HISTORY: Headache. Comparison CT study July 01, 2018. CT FINDINGS: Digital preliminary diabetes territory manager radiograph is unremarkable. Bone window settings demonstrate an intact bony calvarium. There is moderate mucosal thickening and partial opacification in the sphenoid and posterior ethmoid sinuses bilaterally. There is a stable radiolucency in the frontal bone on the right above the right frontal sinus, which is unchanged and consistent with a small benign hemangioma. This is also stable and unchanged when compared with the May 30, 2016 study. On soft tissue window settings, the lateral, third, and fourth ventricles are normal in size and position. Lawrence-white differentiation pattern is normal above below the tentorium. There is no evidence of intracranial hemorrhage. No infarct, mass, extra-axial fluid collection or midline shift is seen. Findings are unchanged from the prior studies. The paranasal sinus disease is new when compared with the most recent prior study of July 01, 2018. IMPRESSION: Sphenoid and bilateral posterior ethmoid paranasal sinusitis changes. Otherwise negative noncontrast head CT. Electronically Signed by Hu Stafford MD 01/14/2019 09:35 A
--- NOTE | 2019-01-14 09:38 | ECGEPIP ---
Stationary ECG Study [facility] - ED Test Date: 2019-01-14 Pat Name: DANIEL WEBSTER Department: Room: - Gender: M Adult Care Manager: : 1955 Requested By: Stacey Eisenberg Order Number: [id number] Reading MD: Apolinar Bueno Measurements Intervals [place] Rate: 67 P: 58 SC: 132 QRS: -4 QRSD: 96 T: 42 QT: 404 QTc: 428 Interpretive Statements SINUS RHYTHM Inferior Q waves of uncertain significance Similar to tracing done 07-01-18 Electronically Signed On 01-14-2019 9:38:28 EST by Apolinar Bueno
[2019-01-14] MEDS ORDERED: diazePAM 5 MG TAB PO ONE (10:00)
[2019-01-14] MEDS ORDERED: ACETAMINOPHEN/CODEINE 300MG/30MG 12.5 ML UDC PO ONE (10:30)
[2019-01-14] MEDS ORDERED: DOXY100C37 PO (11:51)
[2019-01-14] MEDS ORDERED: AUGM875T28 PO (12:06)
[2019-01-14] MEDS ORDERED: GUAI1SOL2 PO (12:07)
[2019-01-14 12:34] VITALS: BP 125/72
== END 2019-01-14 12:52 | disposition home or self-care (01) ==
LOC: M ED 07:29
DX: R51 Headache (principal); J32.9 Chronic sinusitis, unspecified; I67.1 Cerebral aneurysm, nonruptured
CPT/HCPCS: 36415; 70450; 71046; 80048; 80076; 82550; 82553; 84443; 84484; 85025; 85652; 87502; 93005; 93041; 94760; 96361; 96374; 96375; 99285; J1200; J2765

== ENCOUNTER → 2019-06-26 | Outpatient (REF) | payer MEDICARE ==
[~2019-06-26] MED LIST changes: -AMLO10TA5; +AMLO10TA5 PO; +ASPI81CH33 PO; +AUGM875T28 PO; -CITA20TA4; +CITA20TA6 PO; +DOXY100C37 PO; -FENO54TA2; +FENO54TA2 PO; -GABA600T4; +GABA600T4 PO; -GLIM4TAB; +GLIM4TAB5 PO; +GUAI1SOL2 PO; -LEVO112T2; +LEVO112T2 PO; -LISI-538; +LISI-538 PO; +MECL1CHW PO; -MECL1CHW2 PO; +MECL1TAB31 PO; -METF10004; +METF10004 PO; +NAPR500T6 PO; -OMEP40CA2; +OMEP40CA97 PO; -PRAV40TA2; +PRAV40TA2 PO; +TRAM50TA2 PO; -ZOLP5TAB; +ZOLP5TAB PO
== END ==
LOC: M SFHCLERA 10:09
PROVIDERS: ATTEND Family Medicine
DX: E11.9 Type 2 diabetes mellitus without complications (principal); Z53.8 Procedure and treatment not carried out for other reasons

== ENCOUNTER → 2019-06-29 | Outpatient (CLI) | payer MEDICARE ==
[~2019-06-29] MED LIST changes: +AMLO10TA5; -AMLO10TA5 PO; -ASPI81CH33 PO; +CITA20TA6; -CITA20TA6 PO; +FENO54TA2; -FENO54TA2 PO; +GABA600T4; -GABA600T4 PO; +GLIM4TAB; -GLIM4TAB5 PO; +LEVO112T2; -LEVO112T2 PO; +LISI-538; -LISI-538 PO; -MECL1TAB31 PO; +METF10004; -METF10004 PO; -NAPR500T6 PO; +OMEP40CA2; -OMEP40CA97 PO; +PRAV40TA2; -PRAV40TA2 PO; -TRAM50TA2 PO; +ZOLP5TAB; -ZOLP5TAB PO
[2019-06-29 16:47] LABS: BASO % 0.4 % (0.0-1.0); EOS # 0.3 10^3/uL (0.0-0.50); EOS % 2.9 % (0.0-3.0); HEMATOCRIT 43.8 % (42.0-52.0); HEMOGLOBIN 14.5 g/dl (13.5-17.5); LYMPH # 3.5 10^3/uL (1.5-4.5); LYMPH % 37.3 % (24.0-44.0); MEAN CORPUSCULAR HEMOGLOBIN 31.7 pg (27.0-33.0); MEAN CORPUSCULAR HGB CONC 33.1 g/dl (32.0-36.5); MEAN CORPUSCULAR VOLUME 95.8 fl (80.0-96.0); MONO # 0.6 10^3/uL (0.0-0.8); MONO % 6.7 % (0.0-5.0); NEUTROPHILS # 4.8 10^3/uL (1.8-7.7); NEUTROPHILS % 52.1 % (36.0-66.0); PLATELET COUNT, AUTOMATED 328 10^3/uL (150-450); RED BLOOD COUNT 4.57 10^6/uL (4.30-6.10); WHITE BLOOD COUNT 9.3 10^3/uL (4.0-10.0)
[2019-06-29 17:10] LABS: ALBUMIN 3.8 GM/DL (3.2-5.2); ALT/SGPT 38 U/L (12-78); BILIRUBIN,TOTAL 0.4 MG/DL (0.2-1.0); BLOOD UREA NITROGEN 17 MG/DL (7-18); CALCIUM LEVEL 9.5 MG/DL (8.8-10.2); CARBON DIOXIDE LEVEL 28 MEQ/L (21-32); CHLORIDE LEVEL 103 MEQ/L (98-107); CHOLESTEROL LEVEL 208 MG/DL (<200); CHOLESTEROL RISK RATIO 6.709 (<5); CREATININE FOR GFR 0.84 MG/DL (0.70-1.30); GLOMERULAR FILTRATION RATE > 60.0 (>49); GLUCOSE, FASTING 160 MG/DL (70-100); HDL CHOLESTEROL 31 MG/DL (>40); NON-HDL-C 177 MG/DL; POTASSIUM SERUM 4.9 MEQ/L (3.5-5.1); SODIUM LEVEL 138 MEQ/L (136-145); TRIGLYCERIDES LEVEL 461 MG/DL (<150)
[2019-06-29 17:12] LABS: HEMOGLOBIN A1c 7.7 %
[2019-06-29 17:21] LABS: MAU/CREAT RATIO 105.5 MCG/MG (0.0-30.0)
== END ==
LOC: M WUC 11:00
PROVIDERS: ATTEND Family Medicine
DX: E11.9 Type 2 diabetes mellitus without complications (principal)

== ENCOUNTER → 2019-07-16 | Outpatient (REF) | payer MEDICARE ==
[~2019-07-16] MED LIST changes: -AMLO10TA5; +AMLO10TA5 PO; +ASPI81CH33 PO; -CITA20TA6; +CITA20TA6 PO; -FENO54TA2; +FENO54TA2 PO; -GABA600T4; +GABA600T4 PO; -GLIM4TAB; +GLIM4TAB5 PO; -LEVO112T2; +LEVO112T2 PO; -LISI-538; +LISI-538 PO; +MECL1TAB31 PO; -METF10004; +METF10004 PO; +NAPR500T6 PO; -OMEP40CA2; +OMEP40CA97 PO; -PRAV40TA2; +PRAV40TA2 PO; +TRAM50TA2 PO; -ZOLP5TAB; +ZOLP5TAB PO
[2019-07-16 17:04] LABS: FREE T4 1.16 NG/DL (0.76-1.46); THYROID STIMULATING HORMONE 3.93 uIU/ML (0.358-3.740)
== END ==
LOC: M SFHCLERA 10:44
PROVIDERS: ATTEND Family Medicine
DX: R53.83 Other fatigue (principal)
CPT/HCPCS: 82607; 84439; 84443; G0463

== ENCOUNTER 2019-08-05 08:38 | Day surgery (SDC) | payer MEDICARE ==
[~2019-08-05] VITALS: Ht 170.2 cm; Wt 90.6 kg
[2019-08-05] MEDS: NS 1,000 ML IV ONE (06:00)
[~2019-08-05 08:38] MED LIST changes: +GLIM4TAB PO; -GLIM4TAB5 PO; +MECL-68 PO; -MECL1TAB31 PO; +OMEP40CA2 PO; -OMEP40CA97 PO
[2019-08-05] MEDS ORDERED: PROPOFOL 500 MG/50 ML VIAL As Ordered ONE (09:15)
[2019-08-05] MEDS ORDERED: LIDOCAINE 2% INJ 100 MG/5 ML SDV (FOR ANES.) As Ordered ONE (09:15)
[2019-08-05] MEDS ORDERED: fentaNYL 100 MCG/2 ML INJECTION (J3010) As Ordered ONE (09:15)
--- NOTE | 2019-08-05 10:56 | ROOR ---
Patient Name: Zafar Dooley Procedure Date: 08/05/2019 10:07 AM Date of : 1955 Age: 63 Room: [facility] Gender: Male Note Status: Finalized Procedure: Upper GI endoscopy Indications: Heartburn Providers: Fabian Bunn MD Referring MD: Genaro BETTS MD Requesting Provider: Medicines: Monitored Anesthesia Care Complications: No immediate complications. Procedure: Pre-Anesthesia Assessment: - Prior to the procedure, a History and Physical was performed, and patient medications and allergies were reviewed. The patient is competent. The risks and benefits of the procedure and the sedation options and risks were discussed with the patient. All questions were answered and informed consent was obtained. Patient identification and proposed procedure were verified by the physician, the nurse and the anesthesiologist in the endoscopy suite. Mental Status Examination: alert and oriented. Airway Examination: normal oropharyngeal airway and neck mobility. Respiratory Examination: clear to auscultation. CV Examination: normal. Prophylactic Antibiotics: The patient does not require prophylactic antibiotics. Prior Anticoagulants: The patient has taken aspirin, last dose was 1 day prior to procedure. ASA Grade Assessment: III - A patient with severe systemic disease. After reviewing the risks and benefits, the patient was deemed in satisfactory condition to undergo the procedure. The anesthesia plan was to use monitored anesthesia care (MAC). Immediately prior to administration of medications, the patient was re-assessed for adequacy to receive sedatives. The heart rate, respiratory rate, oxygen saturations, blood pressure, adequacy of pulmonary ventilation, and response to care were monitored throughout the procedure. The physical status of the patient was re-assessed after the procedure. The Endoscope was introduced through the mouth, and advanced to the second part of duodenum. The upper GI endoscopy was accomplished without difficulty. The patient tolerated the procedure well. Findings: The Z-line was irregular and was found 37 cm from the incisors. This was biopsied with a cold forceps for evaluation to rule out Armendariz's Esophagus. Estimated blood loss was minimal. Localized white patch/macule mucosal changes characterized by scarring were found in the middle third of the esophagus. This was biopsied with a cold forceps for histology. Localized nodular mucosa was found in the gastric antrum. Biopsies were taken with a cold forceps for histology. Estimated blood loss was minimal. The second portion of the duodenum was normal. Impression: - Z-line irregular, 37 cm from the incisors. Biopsied. - Scarred mucosa in the esophagus. Biopsied. - Nodular mucosa in the gastric antrum. Biopsied. - Normal second portion of the duodenum. Recommendation: - Discharge patient to home (ambulatory). - Await pathology results. - Telephone GI office for pathology results in 1 week. Fabian Bunn MD Fabian Bunn MD 08/05/2019 10:55:44 AM Electronically signed by Fabian Bunn MD Number of Addenda: 0 Note Initiated On: 08/05/2019 10:07 AM Estimated Blood Loss: Estimated blood loss was minimal.
--- NOTE | 2019-08-05 10:59 | ROOR ---
Patient Name: Zafar Dooley Procedure Date: 08/05/2019 10:08 AM Date of : 1955 Age: 63 Room: [facility] Gender: Male Note Status: Finalized Procedure: Colonoscopy Indications: High risk colon cancer surveillance: Personal history of colonic polyps Providers: Fabian Bunn MD Referring MD: Genaro BETTS MD Requesting Provider: Medicines: Monitored Anesthesia Care Complications: No immediate complications. Procedure: Pre-Anesthesia Assessment: - Prior to the procedure, a History and Physical was performed, and patient medications and allergies were reviewed. The patient is competent. The risks and benefits of the procedure and the sedation options and risks were discussed with the patient. All questions were answered and informed consent was obtained. Patient identification and proposed procedure were verified by the physician, the nurse and the anesthesiologist in the endoscopy suite. Mental Status Examination: alert and oriented. Airway Examination: normal oropharyngeal airway and neck mobility. Respiratory Examination: clear to auscultation. CV Examination: normal. Prophylactic Antibiotics: The patient does not require prophylactic antibiotics. Prior Anticoagulants: The patient has taken aspirin, last dose was 1 day prior to procedure. ASA Grade Assessment: III - A patient with severe systemic disease. After reviewing the risks and benefits, the patient was deemed in satisfactory condition to undergo the procedure. The anesthesia plan was to use monitored anesthesia care (MAC). Immediately prior to administration of medications, the patient was re-assessed for adequacy to receive sedatives. The heart rate, respiratory rate, oxygen saturations, blood pressure, adequacy of pulmonary ventilation, and response to care were monitored throughout the procedure. The physical status of the patient was re-assessed after the procedure. The Colonoscope was introduced through the anus and advanced to the cecum, identified by appendiceal orifice and ileocecal valve. The colonoscopy was technically difficult and complex due to significant looping and a tortuous colon. Successful completion of the procedure was aided by applying abdominal pressure. The patient tolerated the procedure well. The quality of the bowel preparation was adequate to identify polyps 6 mm and larger in size. Findings: A few small-mouthed diverticula were found in the sigmoid colon. A diminutive polyp was found in the sigmoid colon. The polyp was flat. The polyp was removed with a cold snare. Resection and retrieval were complete. No biopsies or other specimens were collected for this exam. The retroflexed view of the distal rectum and anal verge was normal and showed no anal or rectal abnormalities. Impression: - Diverticulosis in the sigmoid colon. - One diminutive polyp in the sigmoid colon, removed with a cold snare. Resected and retrieved. No specimens collected. - The distal rectum and anal verge are normal on retroflexion view. Recommendation: - Repeat colonoscopy in 5 years for surveillance. Fabian Bunn MD Fabian Bunn MD 08/05/2019 10:58:44 AM Electronically signed by Fabian Bunn MD Number of Addenda: 0 Note Initiated On: 08/05/2019 10:08 AM Estimated Blood Loss: Estimated blood loss: none.
[2019-08-05 11:20] VITALS: BP 123/61
== END 2019-08-05 11:30 | disposition home or self-care (01) ==
LOC: M OPP 08:38
PROVIDERS: ATTEND Surgery
DX: Z12.11 Encounter for screening for malignant neoplasm of colon (principal); Z86.010 Personal history of colon polyps; D12.5 Benign neoplasm of sigmoid colon; K57.30 Diverticulosis of large intestine without perforation or abscess without bleeding; R12 Heartburn; K22.8 Other specified diseases of esophagus; K31.89 Other diseases of stomach and duodenum; I10 Essential (primary) hypertension; E78.5 Hyperlipidemia, unspecified; E11.9 Type 2 diabetes mellitus without complications; E03.9 Hypothyroidism, unspecified; K21.9 Gastro-esophageal reflux disease without esophagitis; M19.90 Unspecified osteoarthritis, unspecified site; R21 Rash and other nonspecific skin eruption; F32.9 Major depressive disorder, single episode, unspecified; R51 Headache; Z86.73 Personal history of transient ischemic attack (TIA), and cerebral infarction without residual deficits; J44.9 Chronic obstructive pulmonary disease, unspecified; R06.83 Snoring; F17.210 Nicotine dependence, cigarettes, uncomplicated; Z91.030 Bee allergy status; Z91.038 Other insect allergy status; Z79.82 Long term (current) use of aspirin; Z79.899 Other long term (current) drug therapy
CPT/HCPCS: 43239; 45385; 88305; J3010

== ENCOUNTER → 2019-09-22 | Outpatient (REF) | payer MEDICARE ==
[~2019-09-22] MED LIST changes: -GLIM4TAB PO; +GLIM4TAB3 PO; -OMEP40CA2 PO; +OMEP40CA97 PO
[2019-09-22 15:46] LABS: CHOLESTEROL LEVEL 193 MG/DL (<200); CHOLESTEROL RISK RATIO 6.225 (<5); HDL CHOLESTEROL 31 MG/DL (>40); NON-HDL-C 162 MG/DL; TRIGLYCERIDES LEVEL 471 MG/DL (<150)
[2019-09-24 08:12] LABS: LDL DIRECT 111 mg/dL (0-99)
== END ==
LOC: M SFHCLERA 11:14
PROVIDERS: ATTEND Family Medicine
DX: E03.9 Hypothyroidism, unspecified (principal); E11.9 Type 2 diabetes mellitus without complications; E78.5 Hyperlipidemia, unspecified
CPT/HCPCS: 80061; 82043; 83036; 83721; 84439; 84443; 90682; G0008; G0463

== ENCOUNTER → 2019-11-19 | Outpatient (CLI) | payer MEDICARE ==
--- NOTE | 2019-11-19 15:03 | REP ---
Left knee series: Six views. History: Acute pain in the left knee. Findings: [place] view shows mild osteoarthritic spurring at the lateral aspect of the patella. The lateral view demonstrates minimal patellar spurring superiorly. There is no evidence of joint effusion. No joint space narrowing is seen. Bones, joints and soft tissues are otherwise unremarkable. Impression: Mild patellofemoral osteoarthritis. Otherwise negative. Electronically Signed by Hu Stafford MD 11/19/2019 06:30 P
== END ==
LOC: M LRY 12:48
PROVIDERS: ATTEND Family Medicine
DX: M17.12 Unilateral primary osteoarthritis, left knee (principal); M25.562 Pain in left knee; E03.9 Hypothyroidism, unspecified

== ENCOUNTER → 2019-11-19 | Outpatient (REF) | payer MEDICARE | LOC: M SFHCLERA 12:38 | PROVIDERS: ATTEND Family Medicine | DX: E03.9 Hypothyroidism, unspecified (principal) ==

== ENCOUNTER → 2020-01-06 | Outpatient (CLI) | payer MEDICARE ==
[~2020-01-06] MED LIST changes: -GLIM4TAB3 PO; +GLIM4TAB5 PO; -MECL-68 PO; +MECL1TAB31 PO
[2020-01-06 17:00] LABS: BLOOD UREA NITROGEN 21 MG/DL (7-18); CALCIUM LEVEL 9.2 MG/DL (8.8-10.2); CARBON DIOXIDE LEVEL 26 MEQ/L (21-32); CHLORIDE LEVEL 106 MEQ/L (98-107); CREATININE FOR GFR 0.86 MG/DL (0.70-1.30); GLOMERULAR FILTRATION RATE > 60.0 (>49); GLUCOSE, FASTING 147 MG/DL (70-100); POTASSIUM SERUM 4.8 MEQ/L (3.5-5.1); SODIUM LEVEL 139 MEQ/L (136-145)
== END ==
LOC: M LRY 09:51
PROVIDERS: ATTEND Orthopaedic Surgery
DX: E11.9 Type 2 diabetes mellitus without complications (principal)
CPT/HCPCS: 36415; 80048; G0463

== ENCOUNTER → 2020-02-18 | Outpatient (REF) | payer MEDICARE ==
[2020-02-18 12:31] LABS: BLOOD UREA NITROGEN 16 MG/DL (7-18); CALCIUM LEVEL 8.9 MG/DL (8.8-10.2); CARBON DIOXIDE LEVEL 26 MEQ/L (21-32); CHLORIDE LEVEL 104 MEQ/L (98-107); CHOLESTEROL LEVEL 261 MG/DL (<200); CREATININE FOR GFR 0.81 MG/DL (0.70-1.30); GLOMERULAR FILTRATION RATE > 60.0 (>49); GLUCOSE, FASTING 134 MG/DL (70-100); HDL CHOLESTEROL 29 MG/DL (>40); NON-HDL-C 232 MG/DL; POTASSIUM SERUM 4.5 MEQ/L (3.5-5.1); SODIUM LEVEL 137 MEQ/L (136-145); TRIGLYCERIDES LEVEL 490 MG/DL (<150)
[2020-02-18 12:45] LABS: HEMOGLOBIN A1c 7.6 %
[2020-02-18 12:56] LABS: CREATININE, URINE 51.3 MG/DL; MAU/CREAT RATIO 181.2 MCG/MG (0.0-30.0)
== END ==
LOC: M SFHCLERA 08:54
PROVIDERS: ATTEND Family Medicine
DX: Z01.818 Encounter for other preprocedural examination (principal); E11.9 Type 2 diabetes mellitus without complications; E03.9 Hypothyroidism, unspecified
CPT/HCPCS: 80048; 80061; 82043; 83036; 84443; G0463

== ENCOUNTER → 2020-04-26 | Outpatient (REF) | payer MEDICARE ==
[~2020-04-26] MED LIST changes: -AMLO10TA5 PO; +AMLO1TAB25 PO; -LISI-538 PO; +LISI20TA33 PO
[2020-04-26 13:53] LABS: CHOLESTEROL LEVEL 242 MG/DL (<200); CHOLESTEROL RISK RATIO 7.562 (<5); HDL CHOLESTEROL 32 MG/DL (>40); NON-HDL-C 210 MG/DL; TRIGLYCERIDES LEVEL 488 MG/DL (<150)
== END ==
LOC: M SFHCLERA 10:20
PROVIDERS: ATTEND Family Medicine
DX: E78.5 Hyperlipidemia, unspecified (principal)

== ENCOUNTER → 2020-05-27 | Outpatient (REF) | payer MEDICARE ==
[~2020-05-27] MED LIST changes: +LISI-538 PO; -LISI20TA33 PO
[2020-05-27 16:22] LABS: BLOOD UREA NITROGEN 18 MG/DL (7-18); CALCIUM LEVEL 9.1 MG/DL (8.8-10.2); CARBON DIOXIDE LEVEL 28 MEQ/L (21-32); CHLORIDE LEVEL 104 MEQ/L (98-107); CHOLESTEROL LEVEL 223 MG/DL (<200); CHOLESTEROL RISK RATIO 7.689 (<5); CREATININE FOR GFR 0.83 MG/DL (0.70-1.30); GLOMERULAR FILTRATION RATE > 60.0 (>49); GLUCOSE, FASTING 117 MG/DL (70-100); HDL CHOLESTEROL 29 MG/DL (>40); NON-HDL-C 194 MG/DL; POTASSIUM SERUM 4.7 MEQ/L (3.5-5.1); SODIUM LEVEL 139 MEQ/L (136-145); TRIGLYCERIDES LEVEL 621 MG/DL (<150)
[2020-05-27 16:32] LABS: HEMOGLOBIN A1c 6.7 %
== END ==
LOC: M SFHCLERA 11:23
PROVIDERS: ATTEND Family Medicine
DX: N52.9 Male erectile dysfunction, unspecified (principal); E78.5 Hyperlipidemia, unspecified; E03.9 Hypothyroidism, unspecified

== ENCOUNTER → 2021-06-12 | Outpatient (CLI) | payer MEDICARE ==
[~2021-06-12] MED LIST changes: +DOXY-443 PO; -DOXY100C37 PO; -LISI-538 PO; +LISI20TA33 PO; +OMEP40CA4 PO; -OMEP40CA97 PO
[2021-06-12 13:48] LABS: BASO # 0.1 10^3/uL (0.0-0.2); BASO % 0.9 % (0.0-1.0); EOS # 0.2 10^3/uL (0.0-0.5); EOS % 3.3 % (0.0-3.0); HEMOGLOBIN 14.7 g/dl (13.5-17.5); LYMPH # 2.6 10^3/uL (1.5-5.0); LYMPH % 37.4 % (24.0-44.0); MEAN CORPUSCULAR HEMOGLOBIN 31.5 pg (27.0-33.0); MEAN CORPUSCULAR HGB CONC 33.4 g/dl (32.0-36.5); MEAN CORPUSCULAR VOLUME 94.4 fl (80.0-96.0); MONO # 0.5 10^3/uL (0.0-0.8); MONO % 7.3 % (2.0-8.0); NEUTROPHILS # 3.5 10^3/uL (1.5-8.5); NEUTROPHILS % 50.2 % (36.0-66.0); PLATELET COUNT, AUTOMATED 289 10^3/uL (150-450); RED BLOOD COUNT 4.66 10^6/uL (4.30-6.10); WHITE BLOOD COUNT 6.9 10^3/uL (4.0-10.0)
[2021-06-12 14:03] LABS: HEMOGLOBIN A1c 8.6 %
[2021-06-12 14:19] LABS: ALBUMIN 3.7 GM/DL (3.2-5.2); ALT/SGPT 43 U/L (12-78); BILIRUBIN,TOTAL 0.3 MG/DL (0.2-1.0); BLOOD UREA NITROGEN 19 MG/DL (7-18); CALCIUM LEVEL 8.4 MG/DL (8.8-10.2); CARBON DIOXIDE LEVEL 26 MEQ/L (21-32); CHLORIDE LEVEL 103 MEQ/L (98-107); CHOLESTEROL LEVEL 240 MG/DL (<200); CHOLESTEROL RISK RATIO 7.741 (<5); CREATININE FOR GFR 0.83 MG/DL (0.70-1.30); FREE T4 1.01 NG/DL (0.76-1.46); GLOMERULAR FILTRATION RATE > 60.0 (>49); GLUCOSE, FASTING 251 MG/DL (70-100); HDL CHOLESTEROL 31 MG/DL (>40); NON-HDL-C 209 MG/DL; POTASSIUM SERUM 4.3 MEQ/L (3.5-5.1); SODIUM LEVEL 136 MEQ/L (136-145); TOTAL PROTEIN 6.9 GM/DL (6.4-8.2); TRIGLYCERIDES LEVEL 944 MG/DL (<150)
[2021-06-12 14:22] LABS: TOTAL 25(OH) VITAMIN D 20.3 NG/ML (30.0-100.0); VITAMIN B12 LEVEL 432 PG/ML (247-911)
[2021-06-12 14:44] LABS: MAU/CREAT RATIO 292.5 MCG/MG (0.0-30.0)
== END ==
LOC: M WUC 10:15
PROVIDERS: ATTEND Nurse Practitioner Family
DX: E03.9 Hypothyroidism, unspecified (principal); F17.200 Nicotine dependence, unspecified, uncomplicated; E11.9 Type 2 diabetes mellitus without complications; R53.83 Other fatigue; Z79.899 Other long term (current) drug therapy

== ENCOUNTER → 2021-12-25 | Outpatient (CLI) | payer MEDICARE ==
[2021-12-25 10:51] LABS: CHOLESTEROL LEVEL 244 MG/DL (<200); CHOLESTEROL RISK RATIO 7.176 (<5); HDL CHOLESTEROL 34 MG/DL (>40); HEMOGLOBIN A1c 8.9 %; NON-HDL-C 210 MG/DL; TRIGLYCERIDES LEVEL 944 MG/DL (<150)
== END ==
LOC: M RAD 09:28
PROVIDERS: ATTEND Nurse Practitioner Family
DX: Z12.2 Encounter for screening for malignant neoplasm of respiratory organs (principal); F17.200 Nicotine dependence, unspecified, uncomplicated; E78.5 Hyperlipidemia, unspecified; E11.9 Type 2 diabetes mellitus without complications

== ENCOUNTER → 2022-04-26 | Outpatient (CLI) | payer MEDICARE ==
[2022-04-26 10:58] LABS: HEMOGLOBIN A1c 7.1 %
== END ==
LOC: M WUC 09:14
PROVIDERS: ATTEND Student in an Organized Health Care Education/Training Program
DX: E11.9 Type 2 diabetes mellitus without complications (principal)

== ENCOUNTER → 2022-10-08 | Outpatient (CLI) | payer MEDICARE | LOC: M RAD 12:05 | PROVIDERS: ATTEND Nurse Practitioner Family | DX: K21.9 Gastro-esophageal reflux disease without esophagitis (principal) | CPT/HCPCS: 78264; A9541 ==

== ENCOUNTER → 2022-10-17 | Outpatient (CLI) | payer MEDICARE | LOC: M LABSMTC 10:25 | PROVIDERS: ATTEND Anesthesiology | DX: Z01.812 Encounter for preprocedural laboratory examination (principal); Z20.822 Contact with and (suspected) exposure to COVID-19 ==

== ENCOUNTER 2022-10-22 06:30 | Day surgery (SDC) | payer MEDICARE ==
[~2022-10-22] VITALS: Ht 170.2 cm; Wt 91.1 kg
[~2022-10-22 06:30] MED LIST changes: +AMIT25TA17 PO; +METF750T36 PO; +NS 1,000 ML IV ONE
[2022-10-22] MEDS ORDERED: propofoL 500 MG/50 ML VIAL As Ordered ONE (07:14)
[2022-10-22] MEDS ORDERED: METO1TAB32 PO (07:20)
[2022-10-22 09:08] VITALS: BP 123/79
[2022-10-22] MEDS ORDERED: fentaNYL 100 MCG/2 ML INJECTION As Ordered ONE (09:52)
== END 2022-10-22 09:11 | disposition home or self-care (01) ==
LOC: M OPP 06:30
PROVIDERS: ATTEND Internal Medicine Gastroenterology
DX: Z12.11 Encounter for screening for malignant neoplasm of colon (principal); Z86.010 Personal history of colon polyps; D12.2 Benign neoplasm of ascending colon; D12.7 Benign neoplasm of rectosigmoid junction; K64.4 Residual hemorrhoidal skin tags; K64.8 Other hemorrhoids; K57.30 Diverticulosis of large intestine without perforation or abscess without bleeding; K21.00 Gastro-esophageal reflux disease with esophagitis, without bleeding; K29.71 Gastritis, unspecified, with bleeding; Z79.02 Long term (current) use of antithrombotics/antiplatelets; Z79.84 Long term (current) use of oral hypoglycemic drugs; Z79.891 Long term (current) use of opiate analgesic; Z79.899 Other long term (current) drug therapy; I10 Essential (primary) hypertension; I67.1 Cerebral aneurysm, nonruptured; E11.9 Type 2 diabetes mellitus without complications; E03.9 Hypothyroidism, unspecified; J44.9 Chronic obstructive pulmonary disease, unspecified; Z86.73 Personal history of transient ischemic attack (TIA), and cerebral infarction without residual deficits
CPT/HCPCS: 43239; 45385; 88305; J3010

== ENCOUNTER → 2023-01-16 | Outpatient (CLI) | payer MEDICARE ==
[~2023-01-16] MED LIST changes: +METO1TAB32 PO; -NS 1,000 ML IV ONE
[2023-01-16 12:29] LABS: BASO # 0.1 10^3/uL (0.0-0.2); BASO % 0.8 % (0.0-1.0); EOS # 0.2 10^3/uL (0.0-0.5); EOS % 2.2 % (0.0-3.0); HEMATOCRIT 45.4 % (42.0-52.0); HEMOGLOBIN 14.9 g/dl (13.5-17.5); LYMPH # 3.2 10^3/uL (1.5-5.0); LYMPH % 43.4 % (24.0-44.0); MEAN CORPUSCULAR HEMOGLOBIN 30.8 pg (27.0-33.0); MEAN CORPUSCULAR HGB CONC 32.8 g/dl (32.0-36.5); MONO # 0.5 10^3/uL (0.0-0.8); MONO % 6.7 % (2.0-8.0); NEUTROPHILS # 3.4 10^3/uL (1.5-8.5); NEUTROPHILS % 46.2 % (36.0-66.0); PLATELET COUNT, AUTOMATED 277 10^3/uL (150-450); RED BLOOD COUNT 4.83 10^6/uL (4.30-6.10); WHITE BLOOD COUNT 7.3 10^3/uL (4.0-10.0)
[2023-01-16 13:03] LABS: MAU/CREAT RATIO 206.9 MCG/MG (0.0-30.0)
[2023-01-16 13:05] LABS: ALBUMIN 3.7 G/DL (3.2-5.2); ALKALINE PHOSPHATASE 62 U/L (46-116); ALT/SGPT 48 U/L (7.0-40); AST/SGOT 24 U/L (<34); BILIRUBIN,TOTAL 0.4 MG/DL (0.3-1.2); BLOOD UREA NITROGEN 15 MG/DL (9-23); CALCIUM LEVEL 8.9 MG/DL (8.3-10.6); CARBON DIOXIDE LEVEL 28 MMOL/L (20-31); CHLORIDE LEVEL 101 MMOL/L (98-107); CHOLESTEROL LEVEL 148 MG/DL (<200); CHOLESTEROL RISK RATIO 4.45 (<5); CREATININE FOR GFR 0.74 MG/DL (0.70-1.30); GLOMERULAR FILTRATION RATE > 60.0 (>49); GLUCOSE, FASTING 239 MG/DL (74-106); HDL CHOLESTEROL 33.2 MG/DL (>40); NON-HDL-C 114.8 MG/DL; POTASSIUM SERUM 4.9 MMOL/L (3.5-5.1); SODIUM LEVEL 136 MMOL/L (136-145); TOTAL PROTEIN 6.5 G/DL (5.7-8.2); TRIGLYCERIDES LEVEL 620 MG/DL (<150)
[2023-01-16 13:06] LABS: FOLATE 11.47 NG/ML (>5.4); THYROID STIMULATING HORMONE 9.286 uIU/ML (0.55-4.78); VITAMIN B12 LEVEL 364 PG/ML (211-911)
[2023-01-16 13:07] LABS: FREE T4 1.11 NG/DL (0.89-1.76)
[2023-01-16 14:02] LABS: HEMOGLOBIN A1c 11.4 % (4.0-6.0)
== END ==
LOC: M WUC 08:43
PROVIDERS: ATTEND Student in an Organized Health Care Education/Training Program
DX: E55.9 Vitamin D deficiency, unspecified (principal); E53.8 Deficiency of other specified B group vitamins; E11.9 Type 2 diabetes mellitus without complications; Z12.5 Encounter for screening for malignant neoplasm of prostate; E03.9 Hypothyroidism, unspecified; Z79.899 Other long term (current) drug therapy
CPT/HCPCS: 36415; 80053; 80061; 82043; 82306; 82607; 82746; 83036; 83921; 84439; 84443; 85025; G0103

== ENCOUNTER → 2023-03-26 | Outpatient (CLI) | payer MEDICARE | LOC: M RAD 13:32 | PROVIDERS: ATTEND Student in an Organized Health Care Education/Training Program | DX: Z87.891 Personal history of nicotine dependence (principal) ==

== ENCOUNTER → 2023-04-26 | Outpatient (CLI) | payer MEDICARE ==
[2023-04-26 10:18] LABS: HEMOGLOBIN A1c 10.6 % (4.0-6.0)
== END ==
LOC: M WUC 08:10
PROVIDERS: ATTEND Student in an Organized Health Care Education/Training Program
DX: E11.65 Type 2 diabetes mellitus with hyperglycemia (principal)

== ENCOUNTER → 2023-05-06 | Outpatient (CLI) | payer MEDICARE | LOC: M PLAIMG 14:47 | PROVIDERS: ATTEND Student in an Organized Health Care Education/Training Program | DX: M51.36 Other intervertebral disc degeneration, lumbar region (principal) ==

== ENCOUNTER → 2023-06-13 | Outpatient (CLI) | payer MEDICARE ==
[~2023-06-13] MED LIST changes: -AMIT25TA17 PO; +AMIT25TA19 PO
== END ==
LOC: M SOG 07:55
PROVIDERS: ATTEND Orthopaedic Surgery
DX: M54.50 Low back pain, unspecified (principal)

== ENCOUNTER → 2023-07-30 | Outpatient (CLI) | payer MEDICARE ==
[~2023-07-30] MED LIST changes: +MECL-209 PO; -MECL1TAB31 PO
[2023-07-30 10:22] LABS: HEMOGLOBIN A1c 8.9 % (4.0-6.0)
== END ==
LOC: M WUC 08:17
PROVIDERS: ATTEND Student in an Organized Health Care Education/Training Program
DX: E11.65 Type 2 diabetes mellitus with hyperglycemia (principal)

== ENCOUNTER → 2023-08-02 | Outpatient (CLI) | payer MEDICARE ==
[2023-08-02 12:10] LABS: BLOOD UREA NITROGEN 15 MG/DL (9-23); CALCIUM LEVEL 9.7 MG/DL (8.3-10.6); CARBON DIOXIDE LEVEL 29 MMOL/L (20-31); CHLORIDE LEVEL 101 MMOL/L (98-107); CREATININE FOR GFR 0.79 MG/DL (0.70-1.30); GLOMERULAR FILTRATION RATE > 60.0 (>49); GLUCOSE, FASTING 228 MG/DL (74-106); POTASSIUM SERUM 4.8 MMOL/L (3.5-5.1); SODIUM LEVEL 134 MMOL/L (136-145)
== END ==
LOC: M LAB 11:13
PROVIDERS: ATTEND Student in an Organized Health Care Education/Training Program
DX: Z01.818 Encounter for other preprocedural examination (principal)

== ENCOUNTER → 2023-11-15 | Outpatient (CLI) | payer MEDICARE ==
[2023-11-15 09:21] LABS: BLOOD UREA NITROGEN 19 MG/DL (9-23); CALCIUM LEVEL 9.2 MG/DL (8.3-10.6); CARBON DIOXIDE LEVEL 25 MMOL/L (20-31); CHLORIDE LEVEL 104 MMOL/L (98-107); CREATININE FOR GFR 0.63 MG/DL (0.70-1.30); GLOMERULAR FILTRATION RATE > 60.0 (>49); GLUCOSE, FASTING 386 MG/DL (74-106); POTASSIUM SERUM 4.8 MMOL/L (3.5-5.1); SODIUM LEVEL 136 MMOL/L (136-145)
[2023-11-15 09:26] LABS: BASO # 0.1 10^3/uL (0.0-0.2); BASO % 0.8 % (0.0-1.0); EOS # 0.2 10^3/uL (0.0-0.5); EOS % 2.5 % (0.0-3.0); HEMATOCRIT 45.6 % (42.0-52.0); HEMOGLOBIN 15.4 g/dl (13.5-17.5); LYMPH % 31.8 % (24.0-44.0); MEAN CORPUSCULAR HEMOGLOBIN 31.2 pg (27.0-33.0); MEAN CORPUSCULAR HGB CONC 33.8 g/dl (32.0-36.5); MEAN CORPUSCULAR VOLUME 92.3 fl (80.0-96.0); MONO # 0.6 10^3/uL (0.0-0.8); MONO % 8.7 % (2.0-8.0); NEUTROPHILS # 3.5 10^3/uL (1.5-8.5); NEUTROPHILS % 55.7 % (36.0-66.0); PLATELET COUNT, AUTOMATED 273 10^3/uL (150-450); RED BLOOD COUNT 4.94 10^6/uL (4.30-6.10); WHITE BLOOD COUNT 6.3 10^3/uL (4.0-10.0)
== END ==
LOC: M LAB 08:13
PROVIDERS: ATTEND Nurse Practitioner Family
DX: I67.1 Cerebral aneurysm, nonruptured (principal)

== ENCOUNTER → 2023-11-15 | Outpatient (CLI) | payer MEDICARE ==
[2023-11-15 09:19] LABS: MAU/CREAT RATIO 373.1 MCG/MG (0.0-30.0)
[2023-11-15 09:22] LABS: ALBUMIN 3.6 G/DL (3.2-5.2); ALKALINE PHOSPHATASE 75 U/L (46-116); ALT/SGPT 36 U/L (7.0-40); AST/SGOT 23 U/L (<34); BILIRUBIN,TOTAL 0.3 MG/DL (0.3-1.2); BLOOD UREA NITROGEN 19 MG/DL (9-23); CALCIUM LEVEL 9.5 MG/DL (8.3-10.6); CARBON DIOXIDE LEVEL 25 MMOL/L (20-31); CHLORIDE LEVEL 103 MMOL/L (98-107); CHOLESTEROL LEVEL 193 MG/DL (<200); CHOLESTEROL RISK RATIO 6.34 (<5); CREATININE FOR GFR 0.63 MG/DL (0.70-1.30); GLOMERULAR FILTRATION RATE > 60.0 (>49); GLUCOSE, FASTING 397 MG/DL (74-106); HDL CHOLESTEROL 30.4 MG/DL (>40); NON-HDL-C 162.6 MG/DL; POTASSIUM SERUM 4.7 MMOL/L (3.5-5.1); PSA SCREENING 0.81 NG/ML (< 4.00); SODIUM LEVEL 133 MMOL/L (136-145); TOTAL PROTEIN 6.8 G/DL (5.7-8.2); TRIGLYCERIDES LEVEL 835 MG/DL (<150)
[2023-11-15 09:23] LABS: FOLATE 17.4 NG/ML (>5.4); THYROID STIMULATING HORMONE 7.115 uIU/ML (0.55-4.78)
[2023-11-15 09:24] LABS: TOTAL 25(OH) VITAMIN D 59.8 NG/ML (20.0-100.0); VITAMIN B12 LEVEL 552 PG/ML (211-911)
[2023-11-15 09:26] LABS: BASO % 0.6 % (0.0-1.0); EOS # 0.2 10^3/uL (0.0-0.5); EOS % 2.7 % (0.0-3.0); HEMATOCRIT 45.7 % (42.0-52.0); HEMOGLOBIN 15.3 g/dl (13.5-17.5); LYMPH # 2.1 10^3/uL (1.5-5.0); LYMPH % 31.6 % (24.0-44.0); MEAN CORPUSCULAR HEMOGLOBIN 31.1 pg (27.0-33.0); MEAN CORPUSCULAR HGB CONC 33.5 g/dl (32.0-36.5); MEAN CORPUSCULAR VOLUME 92.9 fl (80.0-96.0); MONO # 0.6 10^3/uL (0.0-0.8); MONO % 8.6 % (2.0-8.0); NEUTROPHILS # 3.7 10^3/uL (1.5-8.5); NEUTROPHILS % 55.9 % (36.0-66.0); PLATELET COUNT, AUTOMATED 287 10^3/uL (150-450); RED BLOOD COUNT 4.92 10^6/uL (4.30-6.10); WHITE BLOOD COUNT 6.6 10^3/uL (4.0-10.0)
== END ==
LOC: M LAB 08:10
PROVIDERS: ATTEND Physician Assistant
DX: Z00.00 Encounter for general adult medical examination without abnormal findings (principal); E11.42 Type 2 diabetes mellitus with diabetic polyneuropathy; I67.1 Cerebral aneurysm, nonruptured; Z79.890 Hormone replacement therapy; Z79.84 Long term (current) use of oral hypoglycemic drugs; Z12.5 Encounter for screening for malignant neoplasm of prostate
CPT/HCPCS: 36415; 80048; 80053; 80061; 82043; 82306; 82607; 82746; 83036; 84439; 84443; 85025; G0103

== ENCOUNTER → 2023-12-17 | Outpatient (CLI) | payer MEDICARE | LOC: M LAB 08:47 | PROVIDERS: ATTEND Neurological Surgery | DX: I67.1 Cerebral aneurysm, nonruptured (principal) ==

== ENCOUNTER → 2023-12-27 | Outpatient (CLI) | payer MEDICARE | LOC: M LAB 10:07 | PROVIDERS: ATTEND Neurological Surgery | DX: I67.1 Cerebral aneurysm, nonruptured (principal) ==

== ENCOUNTER → 2024-01-23 | Outpatient (CLI) | payer MEDICARE ==
[2024-01-23 15:05] LABS: BASO # 0.1 10^3/uL (0.0-0.2); BASO % 0.6 % (0.0-1.0); EOS # 0.3 10^3/uL (0.0-0.5); EOS % 2.9 % (0.0-3.0); HEMATOCRIT 45.9 % (42.0-52.0); HEMOGLOBIN 15.6 g/dl (13.5-17.5); LYMPH # 3.1 10^3/uL (1.5-5.0); LYMPH % 33.1 % (24.0-44.0); MEAN CORPUSCULAR HEMOGLOBIN 31.6 pg (27.0-33.0); MEAN CORPUSCULAR VOLUME 93.1 fl (80.0-96.0); MONO # 0.7 10^3/uL (0.0-0.8); MONO % 7.1 % (2.0-8.0); NEUTROPHILS # 5.3 10^3/uL (1.5-8.5); NEUTROPHILS % 55.7 % (36.0-66.0); PLATELET COUNT, AUTOMATED 316 10^3/uL (150-450); RED BLOOD COUNT 4.93 10^6/uL (4.30-6.10); WHITE BLOOD COUNT 9.5 10^3/uL (4.0-10.0)
[2024-01-23 15:31] LABS: BLOOD UREA NITROGEN 27 MG/DL (9-23); CALCIUM LEVEL 9.7 MG/DL (8.3-10.6); CARBON DIOXIDE LEVEL 26 MMOL/L (20-31); CHLORIDE LEVEL 102 MMOL/L (98-107); CREATININE FOR GFR 0.92 MG/DL (0.70-1.30); GLOMERULAR FILTRATION RATE > 60.0 (>49); GLUCOSE, FASTING 332 MG/DL (74-106); POTASSIUM SERUM 4.7 MMOL/L (3.5-5.1); SODIUM LEVEL 135 MMOL/L (136-145)
== END ==
LOC: M LAB 14:13
PROVIDERS: ATTEND Nurse Practitioner Family
DX: I67.1 Cerebral aneurysm, nonruptured (principal)

== ENCOUNTER 2024-02-26 11:14 | Emergency (ER) | payer MEDICARE ==
[~2024-02-26] VITALS: Ht 170.2 cm; Wt 92.5 kg
[2024-02-26] MEDS ORDERED: ROSU10TA6 (12:27)
[2024-02-26] MEDS ORDERED: SITA50TAB (12:27)
[2024-02-26] MEDS ORDERED: FENO54TA2 (12:27)
[2024-02-26] MEDS ORDERED: CLOP75TA2 (12:27)
[2024-02-26] MEDS ORDERED: AMLO2.5T3 (12:27)
[2024-02-26] MEDS ORDERED: D-50CAP (12:27)
[2024-02-26] MEDS ORDERED: LEVO137T2 PO (12:27)
[2024-02-26] MEDS ORDERED: LANTINJ4 (12:27)
[2024-02-26] MEDS ORDERED: METO1TAB87 (12:27)
[2024-02-26] MEDS: NS 1,000 ML IV SCH (13:31)
[2024-02-26 14:15] VITALS: BP 128/74; O2SAT 94
[2024-02-26 14:24] VITALS: TEMP 97.2
== END 2024-02-26 14:43 | disposition short-term general hospital (02) ==
LOC: M ED 11:14
DX: I63.9 Cerebral infarction, unspecified (principal); E11.9 Type 2 diabetes mellitus without complications; I10 Essential (primary) hypertension; E78.5 Hyperlipidemia, unspecified; F17.210 Nicotine dependence, cigarettes, uncomplicated; Z91.030 Bee allergy status; Z79.899 Other long term (current) drug therapy; Z79.1 Long term (current) use of non-steroidal anti-inflammatories (NSAID); Z79.84 Long term (current) use of oral hypoglycemic drugs; Z79.4 Long term (current) use of insulin

== ENCOUNTER → 2024-04-07 | Outpatient (CLI) | payer MEDICARE ==
[~2024-04-07] MED LIST changes: +AMLO2.5T3; +CLOP75TA2; +D-50CAP; +DOXY-323 PO; -DOXY-443 PO; +FENO54TA2; +LANTINJ4; +LEVO137T2 PO; +METO1TAB87; +ROSU10TA61; +SITA50TAB
[2024-04-07 12:07] LABS: BASO % 0.5 % (0.0-1.0); EOS # 0.3 10^3/uL (0.0-0.5); EOS % 3.5 % (0.0-3.0); HEMATOCRIT 45.5 % (42.0-52.0); HEMOGLOBIN 14.9 g/dl (13.5-17.5); LYMPH # 3.7 10^3/uL (1.5-5.0); LYMPH % 44.2 % (24.0-44.0); MEAN CORPUSCULAR HEMOGLOBIN 31.1 pg (27.0-33.0); MEAN CORPUSCULAR HGB CONC 32.7 g/dl (32.0-36.5); MONO # 0.6 10^3/uL (0.0-0.8); MONO % 7.6 % (2.0-8.0); NEUTROPHILS # 3.7 10^3/uL (1.5-8.5); NEUTROPHILS % 43.8 % (36.0-66.0); PLATELET COUNT, AUTOMATED 307 10^3/uL (150-450); RED BLOOD COUNT 4.79 10^6/uL (4.30-6.10); WHITE BLOOD COUNT 8.5 10^3/uL (4.0-10.0)
[2024-04-07 12:45] LABS: THYROID STIMULATING HORMONE 11.662 uIU/ML (0.55-4.78)
[2024-04-07 12:47] LABS: ALBUMIN 3.7 G/DL (3.2-5.2); ALKALINE PHOSPHATASE 74 U/L (46-116); ALT/SGPT 45 U/L (7.0-40); AST/SGOT 27 U/L (<34); BILIRUBIN,TOTAL 0.4 MG/DL (0.3-1.2); BLOOD UREA NITROGEN 18 MG/DL (9-23); CALCIUM LEVEL 9.3 MG/DL (8.3-10.6); CARBON DIOXIDE LEVEL 26 MMOL/L (20-31); CHLORIDE LEVEL 105 MMOL/L (98-107); CHOLESTEROL LEVEL 122 MG/DL (<200); CHOLESTEROL RISK RATIO 4.08 (<5); CREATININE FOR GFR 0.77 MG/DL (0.70-1.30); FREE T4 1.11 NG/DL (0.89-1.76); GLOMERULAR FILTRATION RATE > 60.0 (>49); GLUCOSE, FASTING 268 MG/DL (74-106); HDL CHOLESTEROL 29.9 MG/DL (>40); LDL CHOLESTEROL 17.5 MG/DL (<100); NON-HDL-C 92.1 MG/DL; POTASSIUM SERUM 4.4 MMOL/L (3.5-5.1); SODIUM LEVEL 139 MMOL/L (136-145); TOTAL PROTEIN 6.7 G/DL (5.7-8.2); TRIGLYCERIDES LEVEL 373 MG/DL (<150)
[2024-04-07 12:53] LABS: HEMOGLOBIN A1c 9.4 % (4.0-6.0)
== END ==
LOC: M WUC 09:03
PROVIDERS: ATTEND Physician Assistant
DX: E11.65 Type 2 diabetes mellitus with hyperglycemia (principal)

== ENCOUNTER → 2024-05-19 | Outpatient (REF) | payer MEDICARE ==
[2024-05-19 17:21] LABS: BASO # 0.1 10^3/uL (0.0-0.2); BASO % 0.6 % (0.0-1.0); EOS # 0.2 10^3/uL (0.0-0.5); HEMATOCRIT 44.7 % (42.0-52.0); HEMOGLOBIN 14.8 g/dl (13.5-17.5); LYMPH # 3.3 10^3/uL (1.5-5.0); LYMPH % 43.3 % (24.0-44.0); MEAN CORPUSCULAR HEMOGLOBIN 31.3 pg (27.0-33.0); MEAN CORPUSCULAR HGB CONC 33.1 g/dl (32.0-36.5); MEAN CORPUSCULAR VOLUME 94.5 fl (80.0-96.0); MONO # 0.5 10^3/uL (0.0-0.8); NEUTROPHILS # 3.5 10^3/uL (1.5-8.5); NEUTROPHILS % 45.5 % (36.0-66.0); PLATELET COUNT, AUTOMATED 344 10^3/uL (150-450); RED BLOOD COUNT 4.73 10^6/uL (4.30-6.10); WHITE BLOOD COUNT 7.7 10^3/uL (4.0-10.0)
[2024-05-19 17:23] LABS: APPEARANCE, URINE CLEAR (CLEAR); BACTERIA, URINE AUTO NEGATIVE (NEGATIVE); BILIRUBIN, URINE AUTO NEGATIVE (NEGATIVE); BLOOD, URINE BLOOD NEGATIVE (NEGATIVE); COLOR, URINE YELLOW (YELLOW); GLUCOSE, URINE (UA) AUTO 1+ mg/dL (NEGATIVE); KETONE, URINE AUTO NEGATIVE (NEGATIVE); LEUKOCYTE ESTERASE, URINE AUTO NEGATIVE (NEGATIVE); MUCUS, URINE SMALL (NEGATIVE); NITRITE, URINE AUTO NEGATIVE (NEGATIVE); PROTEIN, URINE AUTO 1+ mg/dL (NEGATIVE); RBC, URINE AUTO 0 /HPF (0-3); SPECIFIC GRAVITY URINE AUTO 1.019 (1.002-1.035); SQUAMOUS EPITHELIAL CELL UR AU 0 /HPF (0-6); UROBILINOGEN, URINE AUTO 0.2 mg/dL (0.0-2.0); WBC, URINE AUTO 1 /HPF (0-3)
[2024-05-19 17:31] LABS: HEMOGLOBIN A1c 9.1 % (4.0-6.0)
[2024-05-19 17:46] LABS: ALBUMIN 3.8 G/DL (3.2-5.2); ALKALINE PHOSPHATASE 57 U/L (46-116); ALT/SGPT 30 U/L (7.0-40); AST/SGOT 16 U/L (<34); BILIRUBIN,TOTAL 0.5 MG/DL (0.3-1.2); BLOOD UREA NITROGEN 15 MG/DL (9-23); CALCIUM LEVEL 9.9 MG/DL (8.3-10.6); CARBON DIOXIDE LEVEL 26 MMOL/L (20-31); CHLORIDE LEVEL 106 MMOL/L (98-107); CHOLESTEROL LEVEL 131 MG/DL (<200); CHOLESTEROL RISK RATIO 5.13 (<5); CREATININE FOR GFR 0.81 MG/DL (0.70-1.30); GLOMERULAR FILTRATION RATE > 60.0 (>49); GLUCOSE, FASTING 198 MG/DL (74-106); HDL CHOLESTEROL 25.5 MG/DL (>40); LDL CHOLESTEROL 31.1 MG/DL (<100); NON-HDL-C 105.5 MG/DL; POTASSIUM SERUM 4.7 MMOL/L (3.5-5.1); SODIUM LEVEL 137 MMOL/L (136-145); TOTAL PROTEIN 6.6 G/DL (5.7-8.2); TRIGLYCERIDES LEVEL 372 MG/DL (<150)
[2024-05-19 17:47] LABS: THYROID STIMULATING HORMONE 2.954 uIU/ML (0.55-4.78)
[2024-05-19 17:48] LABS: FREE T4 1.46 NG/DL (0.89-1.76)
== END ==
LOC: M SFHCLERA 10:12
PROVIDERS: ATTEND Physician Assistant
DX: E11.65 Type 2 diabetes mellitus with hyperglycemia (principal); E03.9 Hypothyroidism, unspecified

== ENCOUNTER → 2024-07-30 | Outpatient (CLI) | payer MEDICARE ==
[~2024-07-30] MED LIST changes: +GABA-1490 PO; -GABA600T4 PO
[2024-07-30 09:14] LABS: BASO # 0.1 10^3/uL (0.0-0.2); BASO % 0.5 % (0.0-1.0); EOS # 0.2 10^3/uL (0.0-0.5); EOS % 1.6 % (0.0-3.0); HEMATOCRIT 44.8 % (42.0-52.0); HEMOGLOBIN 14.9 g/dl (13.5-17.5); LYMPH # 2.8 10^3/uL (1.5-5.0); LYMPH % 18.7 % (24.0-44.0); MEAN CORPUSCULAR HGB CONC 33.3 g/dl (32.0-36.5); MEAN CORPUSCULAR VOLUME 93.1 fl (80.0-96.0); MONO # 0.9 10^3/uL (0.0-0.8); MONO % 5.9 % (2.0-8.0); NEUTROPHILS # 11.1 10^3/uL (1.5-8.5); NEUTROPHILS % 72.8 % (36.0-66.0); PLATELET COUNT, AUTOMATED 299 10^3/uL (150-450); RED BLOOD COUNT 4.81 10^6/uL (4.30-6.10); WHITE BLOOD COUNT 15.2 10^3/uL (4.0-10.0)
[2024-07-30 09:42] LABS: BLOOD UREA NITROGEN 14 MG/DL (9-23); CALCIUM LEVEL 9.9 MG/DL (8.3-10.6); CARBON DIOXIDE LEVEL 27 MMOL/L (20-31); CHLORIDE LEVEL 107 MMOL/L (98-107); CREATININE FOR GFR 0.75 MG/DL (0.70-1.30); GLOMERULAR FILTRATION RATE > 60.0 (>49); GLUCOSE, FASTING 248 MG/DL (74-106); POTASSIUM SERUM 4.6 MMOL/L (3.5-5.1); SODIUM LEVEL 140 MMOL/L (136-145)
== END ==
LOC: M LAB 08:14
PROVIDERS: ATTEND Neurological Surgery
DX: I67.1 Cerebral aneurysm, nonruptured (principal)

== ENCOUNTER → 2024-07-31 | Outpatient (REF) | payer MEDICARE | LOC: M LAB REF 16:28 | PROVIDERS: ATTEND Internal Medicine | DX: Z13.89 Encounter for screening for other disorder (principal) ==

== ENCOUNTER → 2024-08-19 | Outpatient (CLI) | payer MEDICARE ==
[~2024-08-19] MED LIST changes: -DOXY-323 PO; +DOXY-441 PO; +NAPR-1405 PO; -NAPR500T6 PO
== END ==
LOC: M RAD 12:42
PROVIDERS: ATTEND Internal Medicine
DX: R59.0 Localized enlarged lymph nodes (principal); F17.210 Nicotine dependence, cigarettes, uncomplicated

== ENCOUNTER → 2024-09-10 | Outpatient (REF) | payer MEDICARE | LOC: M LAB REF 07:55 | PROVIDERS: ATTEND Otolaryngology | DX: D10.39 Benign neoplasm of other parts of mouth (principal) ==

== ENCOUNTER 2025-01-27 10:53 | Day surgery (SDC) | payer MEDICARE ==
[~2025-01-27] VITALS: Ht 170.2 cm; Wt 85.4 kg
[~2025-01-27 10:53] MED LIST changes: +NOVOINJ3 SC; +SEMA0.257 SC
[2025-01-27] MEDS: INSULIN LISPRO (NovoLOG) PER UNIT SC PRN (11:41)
[2025-01-27] MEDS ORDERED: propofoL 200 MG/20 ML VIAL As Ordered ONE (12:27)
[2025-01-27] MEDS ORDERED: LIDOCAINE 2% 100MG/5ML SDV (FOR ANES.) As Ordered ONE (12:27)
[2025-01-27 12:42] VITALS: TEMP 98.9
[2025-01-27 13:02] VITALS: BP 128/77; O2SAT 94
== END 2025-01-27 13:05 | disposition home or self-care (01) ==
LOC: M OPP 10:53
PROVIDERS: ATTEND Surgery
DX: D12.3 Benign neoplasm of transverse colon (principal); K64.8 Other hemorrhoids; Z86.0100 Personal history of colon polyps, unspecified; G47.30 Sleep apnea, unspecified; Z86.73 Personal history of transient ischemic attack (TIA), and cerebral infarction without residual deficits; Z91.030 Bee allergy status; Z91.038 Other insect allergy status; Z79.82 Long term (current) use of aspirin; Z79.4 Long term (current) use of insulin; Z79.84 Long term (current) use of oral hypoglycemic drugs; Z79.85 Long-term (current) use of injectable non-insulin antidiabetic drugs; Z79.899 Other long term (current) drug therapy; J44.9 Chronic obstructive pulmonary disease, unspecified; F17.210 Nicotine dependence, cigarettes, uncomplicated
CPT/HCPCS: 45380; 88305; J1815

== ENCOUNTER → 2025-03-10 | Outpatient (CLI) | payer MEDICARE | LOC: M WUC 10:10 | PROVIDERS: ATTEND Internal Medicine | DX: M25.562 Pain in left knee (principal) ==

== ENCOUNTER → 2025-07-27 | Outpatient (CLI) | payer MEDICARE ==
[~2025-07-27] MED LIST changes: -PRAV40TA2 PO; +PRAV40TA85 PO; -ZOLP5TAB PO; +ZOLP5TAB9 PO
== END ==
LOC: M WUC 15:12
PROVIDERS: ATTEND Nurse Practitioner Adult Health
DX: M25.552 Pain in left hip (principal); M16.12 Unilateral primary osteoarthritis, left hip

== ENCOUNTER → 2025-09-15 | Outpatient (REF) | payer MEDICARE ==
[~2025-09-15] MED LIST changes: -ROSU10TA61; +ROSU10TA90
[2025-09-15 14:18] LABS: APPEARANCE, URINE CLEAR (CLEAR); BACTERIA, URINE AUTO NEGATIVE (NEGATIVE); BILIRUBIN, URINE AUTO NEGATIVE (NEGATIVE); BLOOD, URINE BLOOD NEGATIVE (NEGATIVE); GLUCOSE, URINE (UA) AUTO NEGATIVE (NEGATIVE); KETONE, URINE AUTO NEGATIVE (NEGATIVE); LEUKOCYTE ESTERASE, URINE AUTO NEGATIVE (NEGATIVE); MUCUS, URINE SMALL (NEGATIVE); NITRITE, URINE AUTO NEGATIVE (NEGATIVE); PROTEIN, URINE AUTO 2+ mg/dL (NEGATIVE); RBC, URINE AUTO 0 /HPF (0-3); SPECIFIC GRAVITY URINE AUTO 1.018 (1.002-1.035); SQUAMOUS EPITHELIAL CELL UR AU 0 /HPF (0-6); UROBILINOGEN, URINE AUTO 0.2 mg/dL (0.0-2.0); WBC, URINE AUTO 1 /HPF (0-3)
== END ==
LOC: M LAB REF 12:42
PROVIDERS: ATTEND Internal Medicine
DX: R31.0 Gross hematuria (principal)

== ENCOUNTER → 2025-09-21 | Outpatient (CLI) | payer MEDICARE ==
[~2025-09-21] MED LIST changes: +ISOVUE-370 76% 100 ML VIAL As Ordered ONE
== END ==
LOC: M RAD 12:23
PROVIDERS: ATTEND Internal Medicine
DX: R31.0 Gross hematuria (principal); N40.0 Benign prostatic hyperplasia without lower urinary tract symptoms
CPT/HCPCS: 74178; 82565; Q9967

== ENCOUNTER → 2025-09-29 | Outpatient (REF) | payer MEDICARE ==
[~2025-09-29] MED LIST changes: -ISOVUE-370 76% 100 ML VIAL As Ordered ONE
== END ==
LOC: M LAB REF 12:33
PROVIDERS: ATTEND Internal Medicine
DX: R31.0 Gross hematuria (principal)

== ENCOUNTER → 2025-10-13 | Outpatient (REF) | payer MEDICARE | LOC: M LAB REF 14:31 | PROVIDERS: ATTEND Internal Medicine | DX: R31.9 Hematuria, unspecified (principal) ==